=== PATIENT | female | born 1945 | race American Indian/Alaskan Native ===

== ENCOUNTER 2020-10-13 19:42 | Inpatient (IN) | payer MEDICARE ==
[2020-10-13] MEDS ORDERED: IPRATROPIUM/ALBUTEROL SULFATE 3 ML AMPUL.NEB IH ONE (20:35)
[2020-10-13] MEDS ORDERED: MAGNESIUM SULFATE 2 GM/50 ML BAG IV ONE (20:35)
--- NOTE | 2020-10-13 20:41 | Emergency Department Report ---
HPI - General Time Seen by Provider: 10/13/20 20:20 - HPI HPI: Room 10 The patient is a 75-year-old female present with a chief complaint of shortness of breath. The patient states she does not carry diagnosis of COPD or asthma but she is on home O2 2 L nasal cannula. Patient states 2 to 3 hours prior to arrival she developed shortness of breath. EMS was called and states the patient was initially wheezing so they administered albuterol 5 mg, Solu-Medrol 125 mg and Zofran prior to arrival in the ED. The patient states she still feels slightly improved. Patient denies history of fever cough or contact with known Covid cases. Patient has history of breast cancer and last received chemotherapy January 2020. Patient denies chest pain ED Past Medical Hx - Past Medical History Hx Hypertension: Yes Hx CVA: Yes Hx Congestive Heart Failure: Yes Hx Diabetes: Yes Hx of Cancer: Yes (Breast CA last chemo January 2020) - Surgical History Past Surgical History?: No - Family History Family history: no significant - Social History Smoking Status: Former Smoker (None x9 years) Substance Use Type: None ED Review of Systems ROS: Stated complaint: DIFFICULTY IN BREATHING Other details as noted in HPI Constitutional: denies: fever Eyes: denies: eye pain ENT: denies: throat pain Respiratory: shortness of breath, wheezing. denies: cough Cardiovascular: denies: chest pain Endocrine: no symptoms reported Gastrointestinal: denies: abdominal pain Genitourinary: denies: dysuria Musculoskeletal: denies: back pain Neurological: denies: headache Physical Exam - Physical Exam Physical Exam: GENERAL: The patient is well-developed well-nourished female lying on stretcher not appearing to be in acute distress. [] HEENT: Normocephalic. Atraumatic. Extraocular motions are intact. Patient has moist mucous membranes. NECK: Supple. Trachea midline CHEST/LUNGS: Clear to auscultation. There is no respiratory distress noted. HEART/CARDIOVASCULAR: Regular. There is no tachycardia. There is no gallop rub or murmur. ABDOMEN: Abdomen is soft, nontender. Patient has normal bowel sounds. There is no abdominal distention. SKIN: There is no rash. There is no edema. There is no diaphoresis. NEURO: The patient is awake, alert, and oriented. The patient is cooperative. The patient has normal speech MUSCULOSKELETAL: There is no evidence of acute injury. ED Medical Decision Making - Lab Data Result diagrams: 10/13/20 21:02 10/13/20 21:02 Laboratory Tests 10/13/20 10/13/20 10/13/20 21:02 21:02 21:02 WBC 8.1 RBC 2.96 L Hgb 7.9 L Hct 23.9 L MCV 81 MCH 27 L MCHC 33 RDW 17.5 H Plt Count 297 Add Manual Diff Complete Total Counted 100 Seg Neutrophils % Electric Distribution Checker Seg Neuts % (Manual) 92.0 H Lymphocytes % (Manual) 5.0 L Monocytes % (Manual) 3.0 Nucleated RBC % Not Reportable Seg Neutrophils # Man 7.5 Band Neutrophils # 0.0 Lymphocytes # (Manual) 0.4 L Abs React Lymphs (Man) 0.0 Monocytes # (Manual) 0.2 Eosinophils # (Manual) 0.0 Basophils # (Manual) 0.0 Metamyelocytes # 0.0 Myelocytes # 0.0 Promyelocytes # 0.0 Blast Cells # 0.0 WBC Morphology Not Reportable Hypersegmented Neuts Not Reportable Hyposegmented Neuts Not Reportable Hypogranular Neuts Not Reportable Smudge Cells Not Reportable Toxic Granulation Not Reportable Toxic Vacuolation Not Reportable Dohle Bodies Not Reportable Pelger-Huet Anomaly Not Reportable Mike Rods Not Reportable Platelet Estimate Consistent w auto Clumped Platelets Not Reportable Plt Clumps, EDTA Not Reportable Large Platelets Not Reportable Giant Platelets Not Reportable Platelet Satelliting Not Reportable Plt Morphology Comment Not Reportable RBC Morphology Not Reportable Dimorphic RBCs Not Reportable Polychromasia Not Reportable Hypochromasia Not Reportable Poikilocytosis Not Reportable Anisocytosis Not Reportable Microcytosis Not Reportable Macrocytosis Not Reportable Spherocytes Not Reportable Pappenheimer Bodies Not Reportable Sickle Cells Not Reportable Target Cells Not Reportable Tear Drop Cells Not Reportable Ovalocytes Rare Helmet Cells Not Reportable Nunez-[place] Bodies Not Reportable Olds Rings Not Reportable Hans Cells Not Reportable Bite Cells Not Reportable Crenated Cell Not Reportable Elliptocytes Not Reportable Acanthocytes (Spur) Not Reportable Rouleaux Not Reportable Hemoglobin C Crystals Not Reportable Schistocytes Not Reportable Malaria parasites Not Reportable Malcom Bodies Not Reportable Hem Pathologist Commnt No PT 13.9 INR 1.09 D-Dimer 1190.14 H ABG pH ABG pCO2 ABG pO2 ABG HCO3 ABG O2 Saturation ABG O2 Content ABG Base Excess ABG Hemoglobin ABG Carboxyhemoglobin ABG Methemoglobin Oxyhemoglobin FiO2 Sodium 136 L Potassium 4.1 Chloride 99.2 Carbon Dioxide 23 Anion Gap 18 BUN 23 H Creatinine 1.0 Estimated GFR > 60 BUN/Creatinine Ratio 23 Glucose 217 H Calcium 7.6 L Total Creatine Kinase 110 CK-MB (CK-2) 3.5 CK-MB (CK-2) Rel Index 3.1 Troponin T 0.041 H NT-Pro-B Natriuret Pep 4997 H Triglycerides 73 Cholesterol 207 H LDL Cholesterol Direct 72 HDL Cholesterol 125 H Cholesterol/HDL Ratio 1.65 10/13/20 22:15 WBC RBC Hgb Hct MCV MCH MCHC RDW Plt Count Add Manual Diff Total Counted Seg Neutrophils % Seg Neuts % (Manual) Lymphocytes % (Manual) Monocytes % (Manual) Nucleated RBC % Seg Neutrophils # Man Band Neutrophils # Lymphocytes # (Manual) Abs React Lymphs (Man) Monocytes # (Manual) Eosinophils # (Manual) Basophils # (Manual) Metamyelocytes # Myelocytes # Promyelocytes # Blast Cells # WBC Morphology Hypersegmented Neuts Hyposegmented Neuts Hypogranular Neuts Smudge Cells Toxic Granulation Toxic Vacuolation Dohle Bodies Pelger-Huet Anomaly Mike Rods Platelet Estimate Clumped Platelets Plt Clumps, EDTA Large Platelets Giant Platelets Platelet Satelliting Plt Morphology Comment RBC Morphology Dimorphic RBCs Polychromasia Hypochromasia Poikilocytosis Anisocytosis Microcytosis Macrocytosis Spherocytes Pappenheimer Bodies Sickle Cells Target Cells Tear Drop Cells Ovalocytes Helmet Cells Nunez-[place] Bodies Olds Rings Hans Cells Bite Cells Crenated Cell Elliptocytes Acanthocytes (Spur) Rouleaux Hemoglobin C Crystals Schistocytes Malaria parasites Malcom Bodies Hem Pathologist Commnt PT INR D-Dimer ABG pH 7.406 ABG pCO2 40.4 ABG pO2 68.4 L ABG HCO3 24.8 ABG O2 Saturation 94.2 L ABG O2 Content 11.1 ABG Base Excess 0.1 ABG Hemoglobin 8.6 L ABG Carboxyhemoglobin 2.1 ABG Methemoglobin 0.6 Oxyhemoglobin 91.6 L FiO2 36 Sodium Potassium Chloride Carbon Dioxide Anion Gap BUN Creatinine Estimated GFR BUN/Creatinine Ratio Glucose Calcium Total Creatine Kinase CK-MB (CK-2) CK-MB (CK-2) Rel Index Troponin T NT-Pro-B Natriuret Pep Triglycerides Cholesterol LDL Cholesterol Direct HDL Cholesterol Cholesterol/HDL Ratio - EKG Data -: EKG Interpreted by Me EKG shows normal: sinus rhythm Rate: normal - EKG Data When compared to previous EKG there are: previous EKG unavailable Interpretation: nonspecific ST-T wave dez - Radiology Data Radiology results: report reviewed (CTA chest), image reviewed (Chest x-ray, CTA chest) interpreted by me: Chest [id number], left lower lobe haziness. No pneumothorax Findings [facility] [address] [place] [address] XRay Report Signed Patient: REGINA BYERS MR#: [id number] : 1945 Acct:[id number] Age/Sex: 75 / F ADM Date: 10/13/20 Loc: ED Attending Dr: Ordering Physician: LEONOR MADERA MD Date of Service: 10/13/20 Procedure(s): XR chest 1V ap Accession Number(s): [id number] cc: LEONOR MADERA MD Fluoro Time In Minutes: CHEST 1 VIEW 10/13/2020 8:54 PM INDICATION / CLINICAL INFORMATION: Shortness of breath. COMPARISON: None available. FINDINGS: SUPPORT DEVICES: There is a Port-A-Cath on the right. The catheter tip is oriented to the left is positioned midline. The exact intravascular location cannot be determined by this radiograph. The catheter tip may be in the left brachiocephalic vein. HEART / MEDIASTINUM: There is prominence the cardiac silhouette LUNGS / PLEURA: There is perihilar interstitial disease characteristic of edema. There is venous congestion. No pneumothorax. ADDITIONAL FINDINGS: No significant additional findings. IMPRESSION: 1. There is perihilar edema. There is venous congestion. 2. The Port-A-Cath catheter tip is oriented to the left and projects over the mid aspect of the mediastinum. The exact intravascular location cannot be determined by this radiograph. Signer Name: Kevin Gamino MD Signed: 10/13/2020 9:01 PM Workstation Name: [id number] Transcribed By: SS Dictated By: Kevin Gamino MD Electronically Authenticated By: Kevin Gamino MD Signed Date/Time: 10/13/202100 DD/ 58 TD/TT: Findings [facility] [address] [place] [address] Cat Scan Report Signed Patient: REGINA BYERS MR#: [id number] : 1945 Acct:[id number] Age/Sex: 75 / F ADM Date: 10/13/20 Loc: ED Attending Dr: Ordering Physician: LEONOR MADERA MD Date of Service: 10/13/20 Procedure(s): CT angio chest Accession Number(s): [id number] cc: LEONOR MADERA MD CTA chest with contrast INDICATION : Shortness of breath. TECHNIQUE: Axial imaging performed through the chest, with contrast bolus timing set to maximize opacification of the pulmonary arteries. 3-plane MIP reformatted images were obtained. All CT scans at this location are performed using CT dose reduction for ALARA by means of automated exposure control. 100 mL of intravenous contrast administered. COMPARISON: Chest x-ray from today FINDINGS: Bolus: Contrast bolus timing is adequate. PTE: No filling defect is present to suggest PTE. Mediastinum: Moderate atherosclerotic disease in the coronary arteries with normal heart size. The tip of the right-sided subclavian Port-A-Cath is located in the left brachiocephalic vein. No pathologic mediastinal adenopathy. Lungs: Moderate sized pleural effusions with respiratory motion artifact, mild edema, and patchy multifocal groundglass opacities. A few nodular densities are also present largest of which measures 8 mm on image #41 of series #2 the medial right upper lobe. Upper abdomen: Limited imaging of the upper abdomen shows nothing acute. Bones: Degenerative changes in the spine with nothing acute. IMPRESSION: 1. Negative for PTE. 2. Pulmonary edema with moderate-sized bilateral pleural effusions. There are also superimposed patchy airspace opacities throughout the lungs which could be seen with alveolar edema or an atypical infe ctious/inflammatory process such as viral disease. Finally, multiple scattered pulmonary nodules are present measuring up to 8 mm. Please see below recommendations. 3. Right-sided Port-A-Cath as above. INCIDENTAL PULMONARY NODULE RECOMMENDATION RECOMMENDATION: Solid Nodule size 6-8 mm -- Multiple - Low Risk Patient: CT at 3-6 months, then consider CT at 18-24 months - High Risk Patient: CT at 3-6 months, then CT at 18-24 month Note These recommendations do not apply to lung cancer screening, patients with immunosuppression, or patients with known primary cancer. Note Newly detected indeterminate nodule in persons 35 years of age or older. Persons under the age of 35 should not receive follow- up unless there is a known primary cancer. Note A Perifissural Nodule is a fissure-attached/subpleural, homogeneous, solid nodule that had smooth margins and an oval, lentiform, or triangular shape. They represent about 20% of nodules detected in lung cancer screening, are invariably benign, and do not require follow-up. Nodules 10 mm or larger (or those with suspicious features) will continue to be managed based on the size criteria. Low Risk Patient -- minimal or absent history of smoking and of other known risk factors. High Risk Patient -- history of smoking or of other known risk factors. Nodule dimensions are average of long and short axes, rounded to the nearest millimeter. Based on 2017 Fleischner Society Guidelines found in Radiology 2017 284:228-243. https://doi.org/10.1148/radiol.[email or web address] https://www.ncbi.nlm.nih.gov/pmc/articles/WQY2205534/ Signer Name: Jorge Luis Winslow MD Signed: 10/13/2020 10:44 PM Workstation Name: [id number] Transcribed By: JW Dictated By: Jorge Luis Winslow MD Electronically Authenticated By: Jorge Luis Winslow MD Signed Date/Time: 10/13/202243 DD/ 39 TD/TT: - Differential Diagnosis Reactive airway disease, CHF, pneumonia, bronchitis, PE Critical care attestation.: If time is entered above; I have spent that time in minutes in the direct care of this critically ill patient, excluding procedure time. ED Disposition Clinical Impression: Shortness of breath, CHF exacerbation, Bilateral pleural effusion, Elevated troponin Disposition: OP ADMIT IP TO THIS HOSP Is pt being admited?: Yes Does the pt Need Aspirin: Yes Condition: Fair Time of Disposition: 23:01 (Hospitalist paged (Dr Farah))
--- NOTE | 2020-10-13 21:06 | XRay Report ---
CHEST 1 VIEW 10/13/2020 8:54 PM INDICATION / CLINICAL INFORMATION: Shortness of breath. COMPARISON: None available. FINDINGS: SUPPORT DEVICES: There is a Port-A-Cath on the right. The catheter tip is oriented to the left is pos itioned midline. The exact intravascular location cannot be determined by this radiograph. The cathet er tip may be in the left brachiocephalic vein. HEART / MEDIASTINUM: There is prominence the cardiac silhouette LUNGS / PLEURA: There is perihilar interstitial disease characteristic of edema. There is venous cody estion. No pneumothorax. ADDITIONAL FINDINGS: No significant additional findings. IMPRESSION: 1. There is perihilar edema. There is venous congestion. 2. The Port-A-Cath catheter tip is oriented to the left and projects over the mid aspect of the media stinum. The exact intravascular location cannot be determined by this radiograph. Signer Name: Kevin Gamino MD Signed: 10/13/2020 9:01 PM Workstation Name: [id number]
[2020-10-13 21:21] LABS: Hematocrit 23.9 % (30.3-42.9); Hemoglobin 7.9 gm/dl (10.1-14.3); Mean Corpuscular HGB Conc 33 % (30-34); Mean Corpuscular Volume 81 fl (79-97); Platelet Count 297 K/mm3 (140-440); Red Blood Count 2.96 M/mm3 (3.65-5.03); Red Cell Distribution Width 17.5 % (13.2-15.2)
[2020-10-13 21:30] LABS: INR 1.09 (0.87-1.13)
[2020-10-13 21:41] LABS: Creatine Kinase MB 3.5 ng/mL (0.0-4.0)
[2020-10-13 21:42] LABS: BUN/Creatinine Ratio 23; Blood Urea Nitrogen 23 mg/dL (7-17); Calcium 7.6 mg/dL (8.4-10.2); Hemolysis Index 0
[2020-10-13 22:14] LABS: LDL Cholesterol,Direct 72 mg/dL (50-130)
[2020-10-13 22:18] LABS: Chol/HDL Ratio 1.65 %; HDL Cholesterol 125 mg/dL (40-59)
[2020-10-13 22:27] LABS: Total Cells Counted 100
[2020-10-13 22:29] LABS: Ovalocytes Rare; Platelet Estimate Consistent w Auto
[2020-10-13 22:38] LABS: ABG Base Excess 0.1 mmol/L (-2.0-3.0); ABG HCO3 24.8 mmol/L (20.0-26.0); ABG Methemoglobin 0.6 % (0.0-1.5); ABG Oxygen Saturation 94.2 % (95.0-99.0); ABG PCO2 40.4 mm Hg; ABG PH 7.406 pH Units (7.350-7.450); ABG PO2 68.4 mm Hg (80.0-90.0)
--- NOTE | 2020-10-13 22:49 | Cat Scan Report ---
CTA chest with contrast INDICATION : Shortness of breath. TECHNIQUE: Axial imaging performed through the chest, with contrast bolus timing set to maximize opa cification of the pulmonary arteries. 3-plane MIP reformatted images were obtained. All CT scans at this location are performed using CT dose reduction for ALARA by means of automated exposure control. 100 mL of intravenous contrast administered. COMPARISON: Chest x-ray from today FINDINGS: Bolus: Contrast bolus timing is adequate. PTE: No filling defect is present to suggest PTE. Mediastinum: Moderate atherosclerotic disease in the coronary arteries with normal heart size. The t ip of the right-sided subclavian Port-A-Cath is located in the left brachiocephalic vein. No patholo gic mediastinal adenopathy. Lungs: Moderate sized pleural effusions with respiratory motion artifact, mild edema, and patchy mul tifocal groundglass opacities. A few nodular densities are also present largest of which measures 8 m m on image #41 of series #2 the medial right upper lobe. Upper abdomen: Limited imaging of the upper abdomen shows nothing acute. Bones: Degenerative changes in the spine with nothing acute. IMPRESSION: 1. Negative for PTE. 2. Pulmonary edema with moderate-sized bilateral pleural effusions. There are also superimposed patch y airspace opacities throughout the lungs which could be seen with alveolar edema or an atypical infe ctious/inflammatory process such as viral disease. Finally, multiple scattered pulmonary nodules are present measuring up to 8 mm. Please see below recommendations. 3. Right-sided Port-A-Cath as above. INCIDENTAL PULMONARY NODULE RECOMMENDATION RECOMMENDATION: Solid Nodule size 6-8 mm -- Multiple - Low Risk Patient: CT at 3-6 months, then consider CT at 18-24 months - High Risk Patient: CT at 3-6 months, then CT at 18-24 month Note These recommendations do not apply to lung cancer screening, patients with immunosuppression, o r patients with known primary cancer. Note Newly detected indeterminate nodule in persons 35 years of age or older. Persons under the age of 35 should not receive follow-up unless there is a known primary cancer. Note A Perifissural Nodule is a fissure-attached/subpleural, homogeneous, solid nodule that had smoo th margins and an oval, lentiform, or triangular shape. They represent about 20% of nodules detected in lung cancer screening, are invariably benign, and do not require follow-up. Nodules 10 mm or large r (or those with suspicious features) will continue to be managed based on the size criteria. Low Risk Patient -- minimal or absent history of smoking and of other known risk factors. High Risk Patient -- history of smoking or of other known risk factors. Nodule dimensions are average of long and short axes, rounded to the nearest millimeter. Based on 2017 Fleischner Society Guidelines found in Radiology 2017 284:228-243. https://doi.org/10.1148/radiol.7455014094 https://www.ncbi.nlm.nih.gov/pmc/articles/TEK7496776/ Signer Name: Jorge Luis Winslow MD Signed: 10/13/2020 10:44 PM Workstation Name: [id number]
[2020-10-13] MEDS ORDERED: FUROSEMIDE 40 MG/4 ML INJ IV ONE (22:58)
[2020-10-13] MEDS ORDERED: AZITHROMYCIN 500 MG in SODIUM CHLORIDE 0.9% 250ML 250 ML IV ONE (23:33)
[2020-10-13] MEDS ORDERED: cefTRIAXone/NS 1 GM/50 ML 1 GM/50 ML BAG IV ONE (23:33)
[2020-10-14] MEDS ORDERED: DEXTROSE 50% IN WATER (25GM) 50 ML SYRINGE IV PRN (00:48)
[2020-10-14] MEDS ORDERED: ONDANSETRON 4 MG/2 ML INJ IV PRN (00:48)
[2020-10-14] MEDS ORDERED: ACETAMINOPHEN 325 MG TAB PO PRN (00:48)
[2020-10-14] MEDS ORDERED: MORPHINE 2 MG/1 ML INJ IV PRN (00:48)
[2020-10-14] MEDS ORDERED: MAGNESIUM HYDROXIDE (MOM) ORAL LIQD UDC PO PRN (00:48)
[2020-10-14 01:13] LABS: C-Reactive Protein 6.9 mg/dL (0.00-1.30)
--- NOTE | 2020-10-14 01:35 | History and Physical Report ---
History of Present Illness Date of examination: 10/13/20 Date of admission: 10/13/20 23:36 Chief complaint: Shortness of Breath History of present illness: Patient is a 75-year-old female with known history of diabetes mellitus, history of CVA, breast cancer with last chemotherapy on 02/13/2020, hypertension presenting to the emergency room today complaining of shortness of breath. Shortness of breath is said to have started a few hours prior to reporting to the emergency room. Upon arrival of EMS patient was said to be wheezing and she was administered some nebulizing treatments, Solu-Medrol and Zofran prior to reporting to the emergency room. Patient denies any fever or chills, denies any chest pain, denies any sick contacts and no recent travel, denies any contact with anyone with COVID-19. Work-up in the emergency room today CT angiogram reveals:. Pulmonary edema with moderate-sized bilateral pleural effusions. There are also superimposed patchy airspace opacities throughout the lungs which could be seen with alveolar edema or an atypical infectious/inflammatory process such as viral disease. Multiple scattered pulmonary nodules are present measuring up to 8 mm. Patient being admitted with CHF exacerbation and or underlying pneumonia. Past History Past Medical History: diabetes, heart failure, hypertension, stroke, other (Breast ca. last - Chemo 01/2020) Past Surgical History: No surgical history Social history: smoking (former smoker) Medications and Allergies Allergies Allergy/AdvReac Type Severity Reaction Status Date / Time metformin Allergy Swelling Verified 10/13/20 21:19 Active Meds: Active Medications Acetaminophen (Acetaminophen 325 Mg Tab) 650 mg PO Q4H PRN PRN Reason: Pain MILD(1-3)/Fever >100.5/CAMACHO Dextrose (Dextrose 50% In Water (25gm) 50 Ml Syringe) 50 ml IV Q30MIN PRN; Protocol PRN Reason: Hypoglycemia Furosemide (Furosemide 40 Mg/4 Ml Inj) 40 mg IV BID@0600,1800 MELANY Ceftriaxone Sodium (Rocephin/Ns 2 Gm/100 Ml) 2 gm in 100 mls @ 200 mls/hr IV Q24H MELANY; Protocol Azithromycin 500 mg/ Sodium (Chloride) 250 mls @ 250 mls/hr IV Q24H MELANY; Protocol Insulin Human Lispro (Insulin Lispro 100 Unit/Ml Vial 3 Ml) 0 unit SUB-Q ACHS MELANY; Protocol Magnesium Hydroxide (Magnesium Hydroxide (Mom) Oral Liqd Udc) 30 ml PO Q4H PRN PRN Reason: Constipation Morphine Sulfate (Morphine 2 Mg/1 Ml Inj) 2 mg IV Q4H PRN PRN Reason: Pain, Moderate (4-6) Ondansetron HCl (Ondansetron 4 Mg/2 Ml Inj) 4 mg IV Q8H PRN PRN Reason: Nausea And Vomiting Sodium Chloride (Sodium Chloride 0.9% 10 Ml Flush Syringe) 10 ml IV BID MELANY Sodium Chloride (Sodium Chloride 0.9% 10 Ml Flush Syringe) 10 ml IV PRN PRN PRN Reason: LINE FLUSH Review of Systems Constitutional: no fever, no chills Ears, nose, mouth and throat: no nasal congestion, no sore throat Cardiovascular: no chest pain, no shortness of breath Respiratory: shortness of breath, no cough Gastrointestinal: no abdominal pain, no nausea, no vomiting Genitourinary Female: no pelvic pain, no flank pain, no dysuria, no hematuria Musculoskeletal: no neck pain, no low back pain Integumentary: no rash, no pruritis Neurological: no headaches, no confusion Exam - Constitutional Vitals: Temp Pulse Resp BP Pulse Ox 98.1 F 79 13 128/58 97 10/13/20 20:30 10/14/20 00:15 10/14/20 00:15 10/14/20 00:15 10/14/20 00:15 General appearance: Present: no acute distress, well-nourished - EENT Eyes: Present: PERRL, EOM intact. Absent: scleral icterus ENT: hearing intact, clear oral mucosa, dentition normal - Neck Neck: Present: supple, normal ROM - Respiratory Respiratory effort: normal Respiratory: bilateral: rales - Cardiovascular Rhythm: regular Heart Sounds: Present: S1 & S2. Absent: systolic murmur, diastolic murmur, rub - Extremities Extremities: no ischemia, pulses intact, pulses symmetrical, No edema, Full ROM Peripheral Pulses: within normal limits - Abdominal General gastrointestinal: Present: soft, non-tender, non-distended, normal bowel sounds. Absent: mass - Integumentary Integumentary: Present: clear, warm, dry. Absent: rash - Musculoskeletal Musculoskeletal: strength equal bilaterally - Psychiatric Psychiatric: appropriate mood/affect, intact judgment & insight, memory intact, cooperative - Neurologic Neurologic: CNII-XII intact, no focal deficits, moves all extremities HEART Score - HEART Score Troponin: Troponin T 0.041 ng/mL (0.00-0.029) H 10/13/20 21:02 Results - Labs CBC & Chem 7: 10/13/20 21:02 10/13/20 23:17 Labs: Abnormal lab results 10/13/20 10/13/20 10/13/20 Range/Units 21:02 21:02 21:02 RBC 2.96 L (3.65-5.03) M/mm3 Hgb 7.9 L (10.1-14.3) gm/dl Hct 23.9 L (30.3-42.9) % MCH 27 L (28-32) pg RDW 17.5 H (13.2-15.2) % Seg Neuts % (Manual) 92.0 H (40.0-70.0) % Lymphocytes % (Manual) 5.0 L (13.4-35.0) % Lymphocytes # (Manual) 0.4 L (1.2-5.4) K/mm3 D-Dimer 1190.14 H (0-234) ng/mlDDU ABG pO2 (80.0-90.0) mm Hg ABG O2 Saturation (95.0-99.0) % ABG Hemoglobin (12.0-16.0) gm/dl Oxyhemoglobin (95.0-99.0) % Sodium 136 L (137-145) mmol/L BUN 23 H (7-17) mg/dL Glucose 217 H (65-100) mg/dL Calcium 7.6 L (8.4-10.2) mg/dL Lactate Dehydrogenase (91-180) units/L Troponin T 0.041 H (0.00-0.029) ng/mL C-Reactive Protein (0.00-1.30) mg/dL NT-Pro-B Natriuret Pep 4997 H (0-900) pg/mL Cholesterol 207 H (50-199) mg/dL HDL Cholesterol 125 H (40-59) mg/dL 10/13/20 10/13/20 10/13/20 Range/Units 22:15 23:17 23:17 RBC (3.65-5.03) M/mm3 Hgb (10.1-14.3) gm/dl Hct (30.3-42.9) % MCH (28-32) pg RDW (13.2-15.2) % Seg Neuts % (Manual) (40.0-70.0) % Lymphocytes % (Manual) (13.4-35.0) % Lymphocytes # (Manual) (1.2-5.4) K/mm3 D-Dimer 1239.20 H (0-234) ng/mlDDU ABG pO2 68.4 L (80.0-90.0) mm Hg ABG O2 Saturation 94.2 L (95.0-99.0) % ABG Hemoglobin 8.6 L (12.0-16.0) gm/dl Oxyhemoglobin 91.6 L (95.0-99.0) % Sodium (137-145) mmol/L BUN (7-17) mg/dL Glucose 219 H (65-100) mg/dL Calcium (8.4-10.2) mg/dL Lactate Dehydrogenase 244 H (91-180) units/L Troponin T (0.00-0.029) ng/mL C-Reactive Protein 6.90 H (0.00-1.30) mg/dL NT-Pro-B Natriuret Pep (0-900) pg/mL Cholesterol (50-199) mg/dL HDL Cholesterol (40-59) mg/dL Assessment and Plan - Patient Problems (1) CHF exacerbation Current Visit: Yes Status: Acute Plan to address problem: Patient placed on diuretics. Will monitor inputs and output and also monitor daily weight. She will be scheduled for echocardiogram. (2) Hypertension Current Visit: Yes Status: Acute Plan to address problem: We will place patient on her routine home medications and monitor vital signs closely.We (3) Diabetes mellitus Current Visit: Yes Status: Acute Plan to address problem: We will monitor Accu-Cheks. (4) Pneumonia Current Visit: Yes Status: Acute Plan to address problem: Patient placed on empiric IV antibiotics. Meanwhile we will also test patient for COVID-19. Infectious disease will be consulted for evaluation. (5) DVT prophylaxis Current Visit: Yes Status: Acute Plan to address problem: Patient placed on subcutaneous Lovenox. (6) Full code status Current Visit: Yes Status: Acute
[2020-10-14] MEDS: FUROSEMIDE 40 MG/4 ML INJ IV SCH ×2 (06:00→21:56)
[2020-10-14] MEDS: INSULIN LISPRO 100 UNIT/ML VIAL 3 mL SUB-Q SCH ×5 (08:04→22:39)
--- NOTE | 2020-10-14 11:44 | Consultation ---
History of Present Illness Consult date: 10/14/20 Consult reason: shortness of breath History of present illness: The patient is a 75-year-old woman admitted with shortness of breath and wheezing, on presentation the chest x-ray showed normal-sized cardiac silhouette, and bilateral mild diffuse interstitial pulmonary changes. She is on isolation protocol, under suspicion for Covid pneumonia. The Covid test has been ordered and is pending. Cardiology consultation is requested for evaluation of possible CHF. The patient has no chest pain, no edema, no palpitations, no prior cardiac history. EKG is normal sinus rhythm with nonspecific T wave flattening, no ischemia on the ECG. Troponin level was borderline at 0.04. Most significant finding on laboratory exam is a hematocrit of 24, no prior results in the hospital records for comparison. Currently, patient is in the emergency room, comfortable on bedrest, no acute distress. Past History Past Medical History: diabetes, hypertension, stroke, other (Breast ca. last - Chemo 01/2020) Past Surgical History: No surgical history Social history: smoking (former smoker) Medications and Allergies Allergies Allergy/AdvReac Type Severity Reaction Status Date / Time metformin Allergy Swelling Verified 10/13/20 21:19 Active Meds: Active Medications Acetaminophen (Acetaminophen 325 Mg Tab) 650 mg PO Q4H PRN PRN Reason: Pain MILD(1-3)/Fever >100.5/CAMACHO Dextrose (Dextrose 50% In Water (25gm) 50 Ml Syringe) 50 ml IV Q30MIN PRN; Protocol PRN Reason: Hypoglycemia Enoxaparin Sodium (Enoxaparin 40 Mg/0.4 Ml Inj) 40 mg SUB-Q QDAY@2200 MELANY; Pro tocol Furosemide (Furosemide 40 Mg/4 Ml Inj) 40 mg IV BID@0600,1800 MELANY Last Admin: 10/14/20 06:00 Dose: 40 mg Documented by: Ceftriaxone Sodium (Rocephin/Ns 2 Gm/100 Ml) 2 gm in 100 mls @ 200 mls/hr IV Q24H MELANY; Protocol Azithromycin 500 mg/ Sodium (Chloride) 250 mls @ 250 mls/hr IV Q24H MELANY; Protocol Stop: 10/17/20 22:59 Insulin Human Lispro (Insulin Lispro 100 Unit/Ml Vial 3 Ml) 0 unit SUB-Q ACHS MELANY; Protocol Last Admin: 12/20/20 08:04 Dose: 8 unit Documented by: Magnesium Hydroxide (Magnesium Hydroxide (Mom) Oral Liqd Udc) 30 ml PO Q4H PRN PRN Reason: Constipation Morphine Sulfate (Morphine 2 Mg/1 Ml Inj) 2 mg IV Q4H PRN PRN Reason: Pain, Moderate (4-6) Ondansetron HCl (Ondansetron 4 Mg/2 Ml Inj) 4 mg IV Q8H PRN PRN Reason: Nausea And Vomiting Sodium Chloride (Sodium Chloride 0.9% 10 Ml Flush Syringe) 10 ml IV BID MELANY Sodium Chloride (Sodium Chloride 0.9% 10 Ml Flush Syringe) 10 ml IV PRN PRN PRN Reason: LINE FLUSH Review of Systems Cardiovascular: shortness of breath, no chest pain, no orthopnea, no palpitations, no rapid/irregular heart beat, no edema, no syncope, no lightheadedness Physical Examination Vital Signs Temp Pulse Resp BP Pulse Ox 98.1 F 80 18 152/80 100 10/13/20 20:30 10/13/20 20:30 10/13/20 20:30 10/13/20 20:30 10/13/20 20:30 Narrative exam: Full physical exam is deferred due to the patient's isolated status under suspicion for Covid pneumonia. General appearance: no acute distress Results 10/13/20 21:02 10/13/20 23:17 Cardiac Enzymes 10/13/20 10/13/20 Range/Units 21:02 23:17 Lactate Dehydrogenase 244 H (91-180) units/L CK-MB (CK-2) 3.5 (0.0-4.0) ng/mL Coagulation 10/13/20 Range/Units 21:02 PT 13.9 (12.2-14.9) Sec. INR 1.09 (0.87-1.13) Lipids 10/13/20 Range/Units 21:02 Triglycerides 73 (2-149) mg/dL Cholesterol 207 H (50-199) mg/dL HDL Cholesterol 125 H (40-59) mg/dL Cholesterol/HDL Ratio 1.65 % CBC 10/13/20 Range/Units 21:02 WBC 8.1 (4.5-11.0) K/mm3 RBC 2.96 L (3.65-5.03) M/mm3 Hgb 7.9 L (10.1-14.3) gm/dl Hct 23.9 L (30.3-42.9) % Plt Count 297 (140-440) K/mm3 Comprehensive Metabolic Panel 10/13/20 10/13/20 Range/Units 21:02 23:17 Sodium 136 L (137-145) mmol/L Potassium 4.1 (3.6-5.0) mmol/L Chloride 99.2 (98-107) mmol/L Carbon Dioxide 23 (22-30) mmol/L BUN 23 H (7-17) mg/dL Creatinine 1.0 (0.6-1.2) mg/dL Glucose 217 H 219 H (65-100) mg/dL Calcium 7.6 L (8.4-10.2) mg/dL EKG interpretations - Telemetry EKG Rhythm: Sinus Rhythm Assessment and Plan - Patient Problems (1) Shortness of breath Current Visit: Yes Status: Acute Plan to address problem: Patient is admitted with shortness of breath and abnormal chest x-ray, etiology uncertain, under suspicion for COVID-19 pneumonia. Covid test is pending. We will hold echocardiogram while on isolation protocol, until Covid status is determined. (2) Anemia Current Visit: Yes Status: Acute Plan to address problem: Defer to internal medicine for further evaluation and management of the patient's anemia.
--- NOTE | 2020-10-14 12:25 | Progress Note ---
Assessment and Plan Assessment and plan: (1) CHF exacerbation Current Visit: Yes Status: Acute Plan to address problem: Patient placed on diuretics. Will monitor inputs and output and also monitor daily weight. She will be scheduled for echocardiogram. (2) Hypertension Current Visit: Yes Status: Acute Plan to address problem: We will place patient on her routine home medications and monitor vital signs closely.We (3) Diabetes mellitus Current Visit: Yes Status: Acute Plan to address problem: We will monitor Accu-Cheks. (4) Pneumonia Current Visit: Yes Status: Acute Plan to address problem: Patient placed on empiric IV antibiotics. Meanwhile we will also test patient for COVID-19. Infectious disease will be consulted for evaluation. (5) DVT prophylaxis Current Visit: Yes Status: Acute Plan to address problem: Patient placed on subcutaneous Lovenox. (6) Full code status Current Visit: Yes Status: Acute 10/14/2020; patient is admitted for the management of suspected pneumonia, PUI, CHF exacerbation. Echo was ordered. Cardiology was consulted. His blood pressure is controlled. Diabetes is uncontrolled and I put Lantus 20 units to be taken now, 25 units nightly, 15 units AC insulin and sliding scale insulin. ADA diet, Accu-Chek and adjust insulin as needed. History Interval history: Patient was seen and evaluated this morning Patient is on 3 L of intranasal oxygen Does not have any complaints Hospitalist Physical - Physical exam Narrative exam: Not in cardiopulmonary distress. The patient appeared well nourished and normally developed. Vital signs as documented. Head exam is unremarkable. No scleral icterus . Neck is without jugular venous distension, thyromegaly, or carotid bruits. Lungs are clear to auscultation. Cardiac exam reveals regular rate and Rhythm. Abdominal exam reveals normal bowel sounds, nontender, no organomegaly. Extremities are nonedematous and both femoral and pedal pulses are normal. MEDICAL CHEMIST: Alert and oriented 3. No focal weakness. - Constitutional Vitals: Temp Pulse Resp BP Pulse Ox 98.1 F 97 H 28 H 131/64 95 10/13/20 20:30 10/14/20 08:01 10/14/20 10:32 10/14/20 10:30 10/14/20 10:32 General appearance: Present: no acute distress HEART Score - HEART Score Troponin: Troponin T 0.041 ng/mL (0.00-0.029) H 10/13/20 21:02 Results - Labs CBC & Chem 7: 10/13/20 21:02 10/13/20 23:17 Labs: Laboratory Last Values WBC 8.1 K/mm3 (4.5-11.0) 10/13/20 21:02 RBC 2.96 M/mm3 (3.65-5.03) L 10/13/20 21:02 Hgb 7.9 gm/dl (10.1-14.3) L 10/13/20 21:02 Hct 23.9 % (30.3-42.9) L 10/13/20 21:02 MCV 81 fl (79-97) 10/13/20 21:02 MCH 27 pg (28-32) L 10/13/20 21:02 MCHC 33 % (30-34) 10/13/20 21:02 RDW 17.5 % (13.2-15.2) H 10/13/20 21:02 Plt Count 297 K/mm3 (140-440) 10/13/20 21:02 Add Manual Diff Complete 10/13/20 21:02 Total Counted 100 10/13/20 21:02 Seg Neutrophils % Crts 10/13/20 21:02 Seg Neuts % (Manual) 92.0 % (40.0-70.0) H 10/13/20 21:02 Lymphocytes % (Manual) 5.0 % (13.4-35.0) L 10/13/20 21:02 Monocytes % (Manual) 3.0 % (0.0-7.3) 10/13/20 21:02 Nucleated RBC % Not Reportable 10/13/20 21:02 Seg Neutrophils # Man 7.5 K/mm3 (1.8-7.7) 10/13/20 21:02 Band Neutrophils # 0.0 K/mm3 10/13/20 21:02 Lymphocytes # (Manual) 0.4 K/mm3 (1.2-5.4) L 10/13/20 21:02 Abs React Lymphs (Man) 0.0 K/mm3 10/13/20 21:02 Monocytes # (Manual) 0.2 K/mm3 (0.0-0.8) 10/13/20 21:02 Eosinophils # (Manual) 0.0 K/mm3 (0.0-0.4) 10/13/20 21:02 Basophils # (Manual) 0.0 K/mm3 (0.0-0.1) 10/13/20 21:02 Metamyelocytes # 0.0 K/mm3 10/13/20 21:02 Myelocytes # 0.0 K/mm3 10/13/20 21:02 Promyelocytes # 0.0 K/mm3 10/13/20 21:02 Blast Cells # 0.0 K/mm3 10/13/20 21:02 WBC Morphology Not Reportable 10/13/20 21:02 Hypersegmented Neuts Not Reportable 10/13/20 21:02 Hyposegmented Neuts Not Reportable 10/13/20 21:02 Hypogranular Neuts Not Reportable 10/13/20 21:02 Smudge Cells Not Reportable 10/13/20 21:02 Toxic Granulation Not Reportable 10/13/20 21:02 Toxic Vacuolation Not Reportable 10/13/20 21:02 Dohle Bodies Not Reportable 10/13/20 21:02 Pelger-Huet Anomaly Not Reportable 10/13/20 21:02 Mike Rods Not Reportable 10/13/20 21:02 Platelet Estimate Consistent w auto 10/13/20 21:02 Clumped Platelets Not Reportable 10/13/20 21:02 Plt Clumps, EDTA Not Reportable 10/13/20 21:02 Large Platelets Not Reportable 10/13/20 21:02 Giant Platelets Not Reportable 10/13/20 21:02 Platelet Satelliting Not Reportable 10/13/20 21:02 Plt Morphology Comment Not Reportable 10/13/20 21:02 RBC Morphology Not Reportable 10/13/20 21:02 Dimorphic RBCs Not Reportable 10/13/20 21:02 Polychromasia Not Reportable 10/13/20 21:02 Hypochromasia Not Reportable 10/13/20 21:02 Poikilocytosis Not Reportable 10/13/20 21:02 Anisocytosis Not Reportable 10/13/20 21:02 Microcytosis Not Reportable 10/13/20 21:02 Macrocytosis Not Reportable 10/13/20 21:02 Spherocytes Not Reportable 10/13/20 21:02 Pappenheimer Bodies Not Reportable 10/13/20 21:02 Sickle Cells Not Reportable 10/13/20 21:02 Target Cells Not Reportable 10/13/20 21:02 Tear Drop Cells Not Reportable 10/13/20 21:02 Ovalocytes Rare 10/13/20 21:02 Helmet Cells Not Reportable 10/13/20 21:02 [place] Bodies Not Reportable 10/13/20 21:02 [place] Rings Not Reportable 10/13/20 21:02 Hans Cells Not Reportable 10/13/20 21:02 Bite Cells Not Reportable 10/13/20 21:02 Crenated Cell Not Reportable 10/13/20 21:02 Elliptocytes Not Reportable 10/13/20 21:02 Acanthocytes (Spur) Not Reportable 10/13/20 21:02 Rouleaux Not Reportable 10/13/20 21:02 Hemoglobin C Crystals Not Reportable 10/13/20 21:02 Schistocytes Not Reportable 10/13/20 21:02 Malaria parasites Not Reportable 10/13/20 21:02 Malcom Bodies Not Reportable 10/13/20 21:02 Hem Pathologist Commnt No 10/13/20 21:02 PT 13.9 Sec. (12.2-14.9) 10/13/20 21:02 INR 1.09 (0.87-1.13) 10/13/20 21:02 D-Dimer 1239.20 ng/mlDDU (0-234) H 10/13/20 23:17 ABG pH 7.406 pH Units (7.350-7.450) 10/13/20 22:15 ABG pCO2 40.4 mm Hg 10/13/20 22:15 ABG pO2 68.4 mm Hg (80.0-90.0) L 10/13/20 22:15 ABG HCO3 24.8 mmol/L (20.0-26.0) 10/13/20 22:15 ABG O2 Saturation 94.2 % (95.0-99.0) L 10/13/20 22:15 ABG O2 Content 11.1 (0.0-44) 10/13/20 22:15 ABG Base Excess 0.1 mmol/L (-2.0-3.0) 10/13/20 22:15 ABG Hemoglobin 8.6 gm/dl (12.0-16.0) L 10/13/20 22:15 ABG Carboxyhemoglobin 2.1 % (0.0-5.0) 10/13/20 22:15 ABG Methemoglobin 0.6 % (0.0-1.5) 10/13/20 22:15 Oxyhemoglobin 91.6 % (95.0-99.0) L 10/13/20 22:15 FiO2 36 % 10/13/20 22:15 Sodium 136 mmol/L (137-145) L 10/13/20 21:02 Potassium 4.1 mmol/L (3.6-5.0) 10/13/20 21:02 Chloride 99.2 mmol/L (98-107) 10/13/20 21:02 Carbon Dioxide 23 mmol/L (22-30) 10/13/20 21:02 Anion Gap 18 mmol/L 10/13/20 21:02 BUN 23 mg/dL (7-17) H 10/13/20 21:02 Creatinine 1.0 mg/dL (0.6-1.2) 10/13/20 21:02 Estimated GFR > 60 ml/min 10/13/20 21:02 BUN/Creatinine Ratio 23 % 10/13/20 21:02 Glucose 219 mg/dL (65-100) H 10/13/20 23:17 POC Glucose 409 mg/dL (70-105) H 10/14/20 11:30 Calcium 7.6 mg/dL (8.4-10.2) L 10/13/20 21:02 Ferritin 197.0 ng/mL (10.0-200.0) 10/13/20 23:17 Lactate Dehydrogenase 244 units/L (91-180) H 10/13/20 23:17 Total Creatine Kinase 110 units/L (30-135) 10/13/20 21:02 CK-MB (CK-2) 3.5 ng/mL (0.0-4.0) 10/13/20 21:02 CK-MB (CK-2) Rel Index 3.1 (0-4) 10/13/20 21:02 Troponin T 0.041 ng/mL (0.00-0.029) H 10/13/20 21:02 C-Reactive Protein 6.90 mg/dL (0.00-1.30) H 10/13/20 23:17 NT-Pro-B Natriuret Pep 4997 pg/mL (0-900) H 10/13/20 21:02 Triglycerides 73 mg/dL (2-149) 10/13/20 21:02 Cholesterol 207 mg/dL (50-199) H 10/13/20 21:02 LDL Cholesterol Direct 72 mg/dL (50-130) 10/13/20 21:02 HDL Cholesterol 125 mg/dL (40-59) H 10/13/20 21:02 Cholesterol/HDL Ratio 1.65 % 10/13/20 21:02 Active Medications - Current Medications Current Medications: Generic Name Dose Route Start Last Admin Trade Name Freq PRN Reason Stop Dose Admin Acetaminophen 650 mg 10/14/20 00:48 Acetaminophen 325 Mg Tab PO Q4H PRN Pain MILD(1-3)/Fever >100.5/CAMACHO Dextrose 50 ml 10/14/20 00:48 Dextrose 50% In Water (25gm) 50 Ml Syringe IV Q30MIN PRN Hypoglycemia Protocol Enoxaparin Sodium 40 mg 10/14/20 22:00 Enoxaparin 40 Mg/0.4 Ml Inj SUB-Q QDAY@2200 [facility] Protocol Furosemide 40 mg 10/14/20 06:00 10/14/20 06:00 Furosemide 40 Mg/4 Ml Inj IV 40 mg BID@0600,1800 MELANY Administration Ceftriaxone Sodium 2 gm in 100 mls @ 200 mls/hr 10/14/20 22:00 Rocephin/Ns 2 Gm/100 Ml IV Q24H MELANY Protocol Azithromycin 500 mg/ Sodium 250 mls @ 250 mls/hr 10/14/20 22:00 Chloride IV 10/17/20 22:59 Q24H [facility] Protocol Insulin Glargine 20 units 10/14/20 12:21 Insulin Glargine 100 Units/Ml SUB-Q 10/14/20 12:22 ONCE ONE Insulin Glargine 25 units 10/14/20 22:00 Insulin Glargine 100 Units/Ml SUB-Q QHS [facility] Insulin Human Lispro 0 unit 10/14/20 07:30 10/14/20 11:48 Insulin Lispro 100 Unit/Ml Vial 3 Ml SUB-Q 8 unit ACHS MELANY Administration Protocol Insulin Human Lispro 15 unit 10/14/20 16:30 Insulin Lispro 100 Unit/Ml Vial 3 Ml SUB-Q AC MELANY Magnesium Hydroxide 30 ml 10/14/20 00:48 Magnesium Hydroxide (Mom) Oral Liqd Udc PO Q4H PRN Constipation Morphine Sulfate 2 mg 10/14/20 00:48 Morphine 2 Mg/1 Ml Inj IV Q4H PRN Pain, Moderate (4-6) Ondansetron HCl 4 mg 10/14/20 00:48 Ondansetron 4 Mg/2 Ml Inj IV Q8H PRN Nausea And Vomiting Sodium Chloride 10 ml 10/14/20 10:00 10/14/20 11:51 Sodium Chloride 0.9% 10 Ml Flush Syringe IV 10 ml BID MELANY Administration Sodium Chloride 10 ml 10/14/20 00:48 Sodium Chloride 0.9% 10 Ml Flush Syringe IV PRN PRN LINE FLUSH
[2020-10-14] MEDS ORDERED: INSULIN GLARGINE 100 UNITS/ML SUB-Q ONE (13:00)
--- NOTE | 2020-10-14 16:26 | Event Note ---
Date: 10/14/20 Infectious diseases was consulted for COVID-19 PUI. COVID-19 PCR has returned negative. Patient has been afebrile. She is being seen by cardiology for CHF exacerbation. ID will sign off.
[2020-10-14] MEDS: cefTRIAXone/NS 2 GM/100 ML 2 GM/100 ML BAG IV SCH (21:56)
[2020-10-14] MEDS ORDERED: AZITHROMYCIN 500 MG in SODIUM CHLORIDE 0.9% 250ML 250 ML IV SCH (22:00)
[2020-10-14] MEDS: ENOXAPARIN 40 MG/0.4 ML INJ SUB-Q SCH (22:08)
[2020-10-14] MEDS: INSULIN GLARGINE 100 UNITS/ML SUB-Q SCH (22:39)
[2020-10-15] MEDS: FUROSEMIDE 40 MG/4 ML INJ IV SCH ×2 (05:40→18:28)
[2020-10-15 06:27] LABS: Basophils % (Auto) 0.2 % (0.0-1.8); Eosinophils % (Auto) 0.2 % (0.0-4.3); Hematocrit 20.8 % (30.3-42.9); Hemoglobin 6.8 gm/dl (10.1-14.3); Lymphocytes # (Auto) 0.6 K/mm3 (1.2-5.4); Lymphocytes % (Auto) 8.8 % (13.4-35.0); Mean Corpuscular HGB Conc 33 % (30-34); Mean Corpuscular Volume 81 fl (79-97); Monocytes # (Auto) 0.5 K/mm3 (0.0-0.8); Monocytes % (Auto) 7.5 % (0.0-7.3); Platelet Count 268 K/mm3 (140-440); Red Blood Count 2.58 M/mm3 (3.65-5.03); Red Cell Distribution Width 17.1 % (13.2-15.2)
[2020-10-15 06:41] LABS: INR 1.04 (0.87-1.13)
[2020-10-15 06:44] LABS: Calcium 7.2 mg/dL (8.4-10.2)
[2020-10-15] MEDS: INSULIN LISPRO 100 UNIT/ML VIAL 3 mL SUB-Q SCH ×7 (07:40→21:55)
[2020-10-15] MEDS ORDERED: SODIUM CHLORIDE 0.9% 500 ML 500 ML IV NR (07:48)
--- NOTE | 2020-10-15 07:54 | Progress Note ---
Assessment and Plan Assessment and plan: Anemia -Hemoglobin was 7.2 on admission and this morning it was 6.8, will transfuse a unit of blood -We will monitor H&H -Anemia work-up including iron, TIBC, ferritin, vitamin B12, folate and fecal occult blood test is ordered. -If FOBT is positive will consult GI (1) CHF exacerbation Current Visit: Yes Status: Acute Plan to address problem: Patient placed on diuretics. Will monitor inputs and output and also monitor daily weight. She will be scheduled for echocardiogram. (2) Hypertension Current Visit: Yes Status: Acute Plan to address problem: We will place patient on her routine home medications and monitor vital signs closely.We (3) Diabetes mellitus Current Visit: Yes Status: Acute Plan to address problem: We will monitor Accu-Cheks. (4) Pneumonia Current Visit: Yes Status: Acute Plan to address problem: Patient placed on empiric IV antibiotics. Meanwhile we will also test patient for COVID-19. Infectious disease will be consulted for evaluation. (5) DVT prophylaxis Current Visit: Yes Status: Acute Plan to address problem: Patient placed on subcutaneous Lovenox. (6) Full code status Current Visit: Yes Status: Acute 10/14/2020; patient is admitted for the management of suspected pneumonia, PUI, CHF exacerbation. Echo was ordered. Cardiology was consulted. His blood pressure is controlled. Diabetes is uncontrolled and I put Lantus 20 units to be taken now, 25 units nightly, 15 units AC insulin and sliding scale insulin. ADA diet, Accu-Chek and adjust insulin as needed. 10/14/2020; patient stated she has history of CHF and has significantly increased proBNP patient is being managed for CHF exacerbation need echo. Patient is on IV Lasix and IV antibiotic. COVID-19 test is negative. Cardiology consulted. History Interval history: Patient was seen and evaluated this morning Patient is on 3 L of intranasal oxygen Does not have any complaints Hospitalist Physical - Physical exam Narrative exam: Not in cardiopulmonary distress. The patient appeared well nourished and normally developed. Vital signs as documented. Head exam is unremarkable. No scleral icterus . Neck is without jugular venous distension, thyromegaly, or carotid bruits. Lungs are clear to auscultation. Cardiac exam reveals regular rate and Rhythm. Abdominal exam reveals normal bowel sounds, nontender, no organomegaly. Extremities are nonedematous and both femoral and pedal pulses are normal. TWISTER DOFFER: Alert and oriented 3. No focal weakness. - Constitutional Vitals: Temp Pulse Resp BP Pulse Ox 98.2 F 88 17 137/78 95 10/14/20 19:25 10/15/20 06:00 10/15/20 06:00 10/15/20 06:00 10/15/20 06:00 General appearance: Present: no acute distress HEART Score - HEART Score Troponin: Troponin T 0.041 ng/mL (0.00-0.029) H 10/13/20 21:02 Results - Labs CBC & Chem 7: 10/15/20 05:43 10/15/20 05:43 Labs: Laboratory Last Values WBC 7.2 K/mm3 (4.5-11.0) 10/15/20 05:43 RBC 2.58 M/mm3 (3.65-5.03) L 10/15/20 05:43 Hgb 6.8 gm/dl (10.1-14.3) L 10/15/20 05:43 Hct 20.8 % (30.3-42.9) L 10/15/20 05:43 MCV 81 fl (79-97) 10/15/20 05:43 MCH 26 pg (28-32) L 10/15/20 05:43 MCHC 33 % (30-34) 10/15/20 05:43 RDW 17.1 % (13.2-15.2) H 10/15/20 05:43 Plt Count 268 K/mm3 (140-440) 10/15/20 05:43 Lymph % (Auto) 8.8 % (13.4-35.0) L 10/15/20 05:43 Mclennan % (Auto) 7.5 % (0.0-7.3) H 10/15/20 05:43 Eos % (Auto) 0.2 % (0.0-4.3) 10/15/20 05:43 Baso % (Auto) 0.2 % (0.0-1.8) 10/15/20 05:43 Lymph # (Auto) 0.6 K/mm3 (1.2-5.4) L 10/15/20 05:43 Mclennan # (Auto) 0.5 K/mm3 (0.0-0.8) 10/15/20 05:43 Eos # (Auto) 0.0 K/mm3 (0.0-0.4) 10/15/20 05:43 Baso # (Auto) 0.0 K/mm3 (0.0-0.1) 10/15/20 05:43 Add Manual Diff Complete 10/13/20 21:02 Total Counted 100 10/13/20 21:02 Seg Neutrophils % 83.3 % (40.0-70.0) H 10/15/20 05:43 Seg Neuts % (Manual) 92.0 % (40.0-70.0) H 10/13/20 21:02 Lymphocytes % (Manual) 5.0 % (13.4-35.0) L 10/13/20 21:02 Monocytes % (Manual) 3.0 % (0.0-7.3) 10/13/20 21:02 Nucleated RBC % Not Reportable 10/13/20 21:02 Seg Neutrophils # 6.0 K/mm3 (1.8-7.7) 10/15/20 05:43 Seg Neutrophils # Man 7.5 K/mm3 (1.8-7.7) 10/13/20 21:02 Band Neutrophils # 0.0 K/mm3 10/13/20 21:02 Lymphocytes # (Manual) 0.4 K/mm3 (1.2-5.4) L 10/13/20 21:02 Abs React Lymphs (Man) 0.0 K/mm3 10/13/20 21:02 Monocytes # (Manual) 0.2 K/mm3 (0.0-0.8) 10/13/20 21:02 Eosinophils # (Manual) 0.0 K/mm3 (0.0-0.4) 10/13/20 21:02 Basophils # (Manual) 0.0 K/mm3 (0.0-0.1) 10/13/20 21:02 Metamyelocytes # 0.0 K/mm3 10/13/20 21:02 Myelocytes # 0.0 K/mm3 10/13/20 21:02 Promyelocytes # 0.0 K/mm3 10/13/20 21:02 Blast Cells # 0.0 K/mm3 10/13/20 21:02 WBC Morphology Not Reportable 10/13/20 21:02 Hypersegmented Neuts Not Reportable 10/13/20 21:02 Hyposegmented Neuts Not Reportable 10/13/20 21:02 Hypogranular Neuts Not Reportable 10/13/20 21:02 Smudge Cells Not Reportable 10/13/20 21:02 Toxic Granulation Not Reportable 10/13/20 21:02 Toxic Vacuolation Not Reportable 10/13/20 21:02 Dohle Bodies Not Reportable 10/13/20 21:02 Pelger-Huet Anomaly Not Reportable 10/13/20 21:02 Mike Rods Not Reportable 10/13/20 21:02 Platelet Estimate Consistent w auto 10/13/20 21:02 Clumped Platelets Not Reportable 10/13/20 21:02 Plt Clumps, EDTA Not Reportable 10/13/20 21:02 Large Platelets Not Reportable 10/13/20 21:02 Giant Platelets Not Reportable 10/13/20 21:02 Platelet Satelliting Not Reportable 10/13/20 21:02 Plt Morphology Comment Not Reportable 10/13/20 21:02 RBC Morphology Not Reportable 10/13/20 21:02 Dimorphic RBCs Not Reportable 10/13/20 21:02 Polychromasia Not Reportable 10/13/20 21:02 Hypochromasia Not Reportable 10/13/20 21:02 Poikilocytosis Not Reportable 10/13/20 21:02 Anisocytosis Not Reportable 10/13/20 21:02 Microcytosis Not Reportable 10/13/20 21:02 Macrocytosis Not Reportable 10/13/20 21:02 Spherocytes Not Reportable 10/13/20 21:02 Pappenheimer Bodies Not Reportable 10/13/20 21:02 Sickle Cells Not Reportable 10/13/20 21:02 Target Cells Not Reportable 10/13/20 21:02 Tear Drop Cells Not Reportable 10/13/20 21:02 Ovalocytes Rare 10/13/20 21:02 Helmet Cells Not Reportable 10/13/20 21:02 Nunez-Mesita Bodies Not Reportable 10/13/20 21:02 Ringsted Rings Not Reportable 10/13/20 21:02 Ten Sleep Cells Not Reportable 10/13/20 21:02 Bite Cells Not Reportable 10/13/20 21:02 Crenated Cell Not Reportable 10/13/20 21:02 Elliptocytes Not Reportable 10/13/20 21:02 Acanthocytes (Spur) Not Reportable 10/13/20 21:02 Rouleaux Not Reportable 10/13/20 21:02 Hemoglobin C Crystals Not Reportable 10/13/20 21:02 Schistocytes Not Reportable 10/13/20 21:02 Malaria parasites Not Reportable 10/13/20 21:02 Malcom Bodies Not Reportable 10/13/20 21:02 Hem Pathologist Commnt No 10/13/20 21:02 PT 13.4 Sec. (12.2-14.9) 10/15/20 05:43 INR 1.04 (0.87-1.13) 10/15/20 05:43 D-Dimer 1239.20 ng/mlDDU (0-234) H 10/13/20 23:17 ABG pH 7.406 pH Units (7.350-7.450) 10/13/20 22:15 ABG pCO2 40.4 mm Hg 10/13/20 22:15 ABG pO2 68.4 mm Hg (80.0-90.0) L 10/13/20 22:15 ABG HCO3 24.8 mmol/L (20.0-26.0) 10/13/20 22:15 ABG O2 Saturation 94.2 % (95.0-99.0) L 10/13/20 22:15 ABG O2 Content 11.1 (0.0-44) 10/13/20 22:15 ABG Base Excess 0.1 mmol/L (-2.0-3.0) 10/13/20 22:15 ABG Hemoglobin 8.6 gm/dl (12.0-16.0) L 10/13/20 22:15 ABG Carboxyhemoglobin 2.1 % (0.0-5.0) 10/13/20 22:15 ABG Methemoglobin 0.6 % (0.0-1.5) 10/13/20 22:15 Oxyhemoglobin 91.6 % (95.0-99.0) L 10/13/20 22:15 FiO2 36 % 10/13/20 22:15 Sodium 142 mmol/L (137-145) 10/15/20 05:43 Potassium 4.3 mmol/L (3.6-5.0) 10/15/20 05:43 Chloride 103.4 mmol/L (98-107) 10/15/20 05:43 Carbon Dioxide 27 mmol/L (22-30) 10/15/20 05:43 Anion Gap 16 mmol/L 10/15/20 05:43 BUN 29 mg/dL (7-17) H 10/15/20 05:43 Creatinine 1.1 mg/dL (0.6-1.2) 10/15/20 05:43 Estimated GFR 59 ml/min 10/15/20 05:43 BUN/Creatinine Ratio 26 % 10/15/20 05:43 Glucose 95 mg/dL (65-100) 10/15/20 05:43 POC Glucose 121 mg/dL (70-105) H 10/14/20 22:19 Calcium 7.2 mg/dL (8.4-10.2) L 10/15/20 05:43 Ferritin 197.0 ng/mL (10.0-200.0) 10/13/20 23:17 Lactate Dehydrogenase 244 units/L (91-180) H 10/13/20 23:17 Total Creatine Kinase 110 units/L (30-135) 10/13/20 21:02 CK-MB (CK-2) 3.5 ng/mL (0.0-4.0) 10/13/20 21:02 CK-MB (CK-2) Rel Index 3.1 (0-4) 10/13/20 21:02 Troponin T 0.041 ng/mL (0.00-0.029) H 10/13/20 21:02 C-Reactive Protein 6.90 mg/dL (0.00-1.30) H 10/13/20 23:17 NT-Pro-B Natriuret Pep 4997 pg/mL (0-900) H 10/13/20 21:02 Triglycerides 73 mg/dL (2-149) 10/13/20 21:02 Cholesterol 207 mg/dL (50-199) H 10/13/20 21:02 LDL Cholesterol Direct 72 mg/dL (50-130) 10/13/20 21:02 HDL Cholesterol 125 mg/dL (40-59) H 10/13/20 21:02 Cholesterol/HDL Ratio 1.65 % 10/13/20 21:02 Procalcitonin 0.21 ng/mL (<0.15) 10/13/20 23:17 Coronavirus (PCR) Negative (Negative) 10/14/20 10:18 Bradley/IV: IV Catheter Type [Right INT / Saline Lock Antecubital] Active Medications - Current Medications Current Medications: Generic Name Dose Route Start Last Admin Trade Name Freq PRN Reason Stop Dose Admin Acetaminophen 650 mg 10/14/20 00:48 Acetaminophen 325 Mg Tab PO Q4H PRN Pain MILD(1-3)/Fever >100.5/CAMACHO Azithromycin 500 mg 10/15/20 22:00 Azithromycin 250 Mg Tab PO 10/17/20 22:01 QHS MELANY Dextrose 50 ml 10/14/20 00:48 Dextrose 50% In Water (25gm) 50 Ml Syringe IV Q30MIN PRN Hypoglycemia Protocol Enoxaparin Sodium 40 mg 10/14/20 22:00 10/14/20 22:08 Enoxaparin 40 Mg/0.4 Ml Inj SUB-Q 40 mg QDAY@2200 MELANY Administration Protocol Furosemide 40 mg 10/14/20 06:00 10/15/20 05:40 Furosemide 40 Mg/4 Ml Inj IV 40 mg BID@0600,1800 MELANY Administration Ceftriaxone Sodium 2 gm in 100 mls @ 200 mls/hr 10/14/20 22:00 10/14/20 21:56 Rocephin/Ns 2 Gm/100 Ml IV 10/19/20 23:59 200 mls/hr Q24H MELANY Administration Protocol Sodium Chloride 500 mls @ 0 mls/hr 10/15/20 07:48 Nacl 0.9% 500 Ml IV 10/15/20 07:49 ONCE ONE As Directed Insulin Glargine 25 units 10/14/20 22:00 10/14/20 22:39 Insulin Glargine 100 Units/Ml SUB-Q 25 units QHS MELANY Administration Insulin Human Lispro 0 unit 10/14/20 07:30 10/14/20 22:39 Insulin Lispro 100 Unit/Ml Vial 3 Ml SUB-Q Not Given ACHS MELANY Protocol Insulin Human Lispro 15 unit 10/14/20 16:30 10/14/20 16:13 Insulin Lispro 100 Unit/Ml Vial 3 Ml SUB-Q 15 unit AC MELANY Administration Magnesium Hydroxide 30 ml 10/14/20 00:48 Magnesium Hydroxide (Mom) Oral Liqd Udc PO Q4H PRN Constipation Morphine Sulfate 2 mg 10/14/20 00:48 Morphine 2 Mg/1 Ml Inj IV Q4H PRN Pain, Moderate (4-6) Ondansetron HCl 4 mg 10/14/20 00:48 Ondansetron 4 Mg/2 Ml Inj IV Q8H PRN Nausea And Vomiting Sodium Chloride 10 ml 10/14/20 10:00 10/14/20 21:58 Sodium Chloride 0.9% 10 Ml Flush Syringe IV 10 ml BID MELANY Administration Sodium Chloride 10 ml 10/14/20 00:48 Sodium Chloride 0.9% 10 Ml Flush Syringe IV PRN PRN LINE FLUSH
[2020-10-15 10:38] LABS: Iron 21 ug/dL (37-170); Total Iron Binding Capacity 243 mcg/dL (250-450)
--- NOTE | 2020-10-15 10:58 | Progress Note ---
Assessment and Plan - Patient Problems (1) Shortness of breath Current Visit: Yes Status: Acute Plan to address problem: Patient is admitted with shortness of breath and abnormal chest x-ray, COVID-19 test was negative. We order echocardiogram for left ventricular function assessment. (2) Anemia Current Visit: Yes Status: Acute Plan to address problem: Defer to internal medicine for further evaluation and management of the patient's anemia. Subjective Date of service: 10/15/20 Interval history: Patient is comfortable, no new cardiac complaints, the COVID-19 test was negative. She has a persistent anemia with most recent hematocrit down to 20. Objective Vital Signs Temp Pulse Resp BP BP Pulse Ox 10/15/20 06:00 88 17 137/78 95 10/15/20 05:30 85 18 138/75 100 10/15/20 05:01 87 15 158/70 100 10/15/20 04:30 84 14 154/70 100 10/15/20 04:00 81 21 140/70 94 10/15/20 03:30 90 22 162/84 92 10/15/20 03:00 87 17 155/86 97 10/15/20 02:30 86 18 158/90 94 10/15/20 02:00 89 15 152/80 94 10/15/20 01:30 88 15 156/78 89 10/15/20 01:00 87 13 144/85 94 10/15/20 00:30 82 15 148/78 97 10/15/20 00:04 81 12 135/71 98 10/15/20 00:01 84 14 95 10/14/20 23:31 81 14 94 10/14/20 23:01 82 16 95 10/14/20 22:31 82 14 97 10/14/20 22:01 79 14 96 10/14/20 21:31 81 13 95 10/14/20 21:01 83 16 97 10/14/20 20:31 83 15 135/71 95 10/14/20 19:30 128/69 95 10/14/20 19:25 98.2 F 84 15 135/71 95 10/14/20 18:30 139/62 97 10/14/20 18:00 138/74 95 10/14/20 17:30 127/55 99 10/14/20 17:00 130/55 97 10/14/20 16:31 149/67 94 10/14/20 16:00 130/60 94 10/14/20 15:30 138/56 93 10/14/20 15:01 133/53 92 10/14/20 14:30 134/63 91 10/14/20 14:02 133/66 93 10/14/20 13:31 145/58 90 10/14/20 13:00 143/78 89 10/14/20 12:30 120/54 97 10/14/20 12:00 136/55 98 10/14/20 11:30 138/60 96 10/14/20 11:00 127/56 97 - Physical Examination General: No Apparent Distress HEENT: Positive: PERRL Neck: Positive: neck supple Cardiac: Positive: Reg Rate and Rhythm Lungs: Positive: Decreased Breath Sounds Neuro: Positive: Grossly Intact Abdomen: Positive: Soft Skin: Positive: Clear Extremities: Absent: edema - Labs and Meds Coagulation 10/15/20 Range/Units 05:43 PT 13.4 (12.2-14.9) Sec. INR 1.04 (0.87-1.13) CBC 10/15/20 Range/Units 05:43 WBC 7.2 (4.5-11.0) K/mm3 RBC 2.58 L (3.65-5.03) M/mm3 Hgb 6.8 L (10.1-14.3) gm/dl Hct 20.8 L (30.3-42.9) % Plt Count 268 (140-440) K/mm3 Lymph # (Auto) 0.6 L (1.2-5.4) K/mm3 Richardson # (Auto) 0.5 (0.0-0.8) K/mm3 Eos # (Auto) 0.0 (0.0-0.4) K/mm3 Baso # (Auto) 0.0 (0.0-0.1) K/mm3 Comprehensive Metabolic Panel 10/15/20 Range/Units 05:43 Sodium 142 (137-145) mmol/L Potassium 4.3 (3.6-5.0) mmol/L Chloride 103.4 (98-107) mmol/L Carbon Dioxide 27 (22-30) mmol/L BUN 29 H (7-17) mg/dL Creatinine 1.1 (0.6-1.2) mg/dL Glucose 95 (65-100) mg/dL Calcium 7.2 L (8.4-10.2) mg/dL
[2020-10-15 16:56] LABS: Hematocrit 25.3 % (30.3-42.9); Hemoglobin 8.3 gm/dl (10.1-14.3)
[2020-10-15] MEDS: ENOXAPARIN 40 MG/0.4 ML INJ SUB-Q SCH (21:53)
[2020-10-15] MEDS: INSULIN GLARGINE 100 UNITS/ML SUB-Q SCH (21:57)
[2020-10-15] MEDS ORDERED: AZITHROMYCIN 250 MG TAB PO SCH (22:00)
[2020-10-15] MEDS: cefTRIAXone/NS 2 GM/100 ML 2 GM/100 ML BAG IV SCH (22:26)
[2020-10-16 05:08] LABS: Hematocrit 26.9 % (30.3-42.9); Hemoglobin 8.7 gm/dl (10.1-14.3); Mean Corpuscular HGB Conc 33 % (30-34); Mean Corpuscular Volume 79 fl (79-97); Platelet Count 277 K/mm3 (140-440); Red Blood Count 3.42 M/mm3 (3.65-5.03); Red Cell Distribution Width 19.6 % (13.2-15.2)
[2020-10-16 05:11] LABS: Lymphocytes % (Auto) 8.1 % (13.4-35.0)
[2020-10-16 05:12] LABS: Basophils # (Auto) 0.1 K/mm3 (0.0-0.1); Basophils % (Auto) 1.8 % (0.0-1.8); Eosinophils % (Auto) 0.6 % (0.0-4.3); Lymphocytes # (Auto) 0.6 K/mm3 (1.2-5.4); Monocytes # (Auto) 0.6 K/mm3 (0.0-0.8); Monocytes % (Auto) 7.3 % (0.0-7.3)
[2020-10-16 05:27] LABS: BUN/Creatinine Ratio 22; Blood Urea Nitrogen 20 mg/dL (7-17); Calcium 7.2 mg/dL (8.4-10.2); Hemolysis Index 0
[2020-10-16] MEDS: FUROSEMIDE 40 MG/4 ML INJ IV SCH (06:30)
[2020-10-16] MEDS: INSULIN LISPRO 100 UNIT/ML VIAL 3 mL SUB-Q SCH ×4 (08:00→12:43)
--- NOTE | 2020-10-16 08:11 | Progress Note ---
Assessment and Plan Assessment and plan: Anemia -Hemoglobin was 7.2 on admission and this morning it was 6.8, will transfuse a unit of blood -We will monitor H&H -Anemia work-up including iron, TIBC, ferritin, vitamin B12, folate and fecal occult blood test is ordered. -If FOBT is positive will consult GI (1) CHF exacerbation Current Visit: Yes Status: Acute Plan to address problem: Patient placed on diuretics. Will monitor inputs and output and also monitor daily weight. She will be scheduled for echocardiogram. (2) Hypertension Current Visit: Yes Status: Acute Plan to address problem: We will place patient on her routine home medications and monitor vital signs closely.We (3) Diabetes mellitus Current Visit: Yes Status: Acute Plan to address problem: We will monitor Accu-Cheks. (4) Pneumonia Current Visit: Yes Status: Acute Plan to address problem: Patient placed on empiric IV antibiotics. Meanwhile we will also test patient for COVID-19. Infectious disease will be consulted for evaluation. (5) DVT prophylaxis Current Visit: Yes Status: Acute Plan to address problem: Patient placed on subcutaneous Lovenox. (6) Full code status Current Visit: Yes Status: Acute 10/14/2020; patient is admitted for the management of suspected pneumonia, PUI, CHF exacerbation. Echo was ordered. Cardiology was consulted. His blood pressure is controlled. Diabetes is uncontrolled and I put Lantus 20 units to be taken now, 25 units nightly, 15 units AC insulin and sliding scale insulin. ADA diet, Accu-Chek and adjust insulin as needed. 10/15/2020; patient stated she has history of CHF and has significantly increased proBNP patient is being managed for CHF exacerbation need echo. Patient is on IV Lasix and IV antibiotic. COVID-19 test is negative. Cardiology consulted. 10/16/2020; patient said she has history of CHF and echo reading noted. Cardiology consult appreciated. Patient states she was on oxygen at home with 2 units of blood. Continue IV Lasix and IV antibiotic for now. Patient was transfused 2 units of blood and posttransfusion hemoglobin is 8.7. Anemia work- up was done and suggestive of anemia of chronic illness. History Interval history: Patient was seen and evaluated this morning Patient is on 4 L of intranasal oxygen Does not have any complaints Hospitalist Physical - Physical exam Narrative exam: Not in cardiopulmonary distress. The patient appeared well nourished and normally developed. Vital signs as documented. Head exam is unremarkable. No scleral icterus . Neck is without jugular venous distension, thyromegaly, or carotid bruits. Lungs are clear to auscultation. Cardiac exam reveals regular rate and Rhythm. Abdominal exam reveals normal bowel sounds, nontender, no organomegaly. Extremities are nonedematous and both femoral and pedal pulses are normal. BOX LOADER: Alert and oriented 3. No focal weakness. - Constitutional Vitals: Temp Pulse Resp BP Pulse Ox 99 F 92 H 17 162/91 98 10/15/20 13:10 10/16/20 03:14 10/16/20 01:30 10/16/20 06:00 10/16/20 06:00 General appearance: Present: no acute distress HEART Score - HEART Score Troponin: Troponin T 0.041 ng/mL (0.00-0.029) H 10/13/20 21:02 Results - Labs CBC & Chem 7: 10/16/20 04:14 10/16/20 04:14 Labs: Laboratory Last Values WBC 7.8 K/mm3 (4.5-11.0) 10/16/20 04:14 RBC 3.42 M/mm3 (3.65-5.03) L 10/16/20 04:14 Hgb 8.7 gm/dl (10.1-14.3) L 10/16/20 04:14 Hct 26.9 % (30.3-42.9) L 10/16/20 04:14 MCV 79 fl (79-97) 10/16/20 04:14 MCH 26 pg (28-32) L 10/16/20 04:14 MCHC 33 % (30-34) 10/16/20 04:14 RDW 19.6 % (13.2-15.2) H 10/16/20 04:14 Plt Count 277 K/mm3 (140-440) 10/16/20 04:14 Lymph % (Auto) 8.1 % (13.4-35.0) L 10/16/20 04:14 Guthrie % (Auto) 7.3 % (0.0-7.3) 10/16/20 04:14 Eos % (Auto) 0.6 % (0.0-4.3) 10/16/20 04:14 Baso % (Auto) 1.8 % (0.0-1.8) 10/16/20 04:14 Lymph # (Auto) 0.6 K/mm3 (1.2-5.4) L 10/16/20 04:14 Guthrie # (Auto) 0.6 K/mm3 (0.0-0.8) 10/16/20 04:14 Eos # (Auto) 0.0 K/mm3 (0.0-0.4) 10/16/20 04:14 Baso # (Auto) 0.1 K/mm3 (0.0-0.1) 10/16/20 04:14 Add Manual Diff Complete 10/13/20 21:02 Total Counted 100 10/13/20 21:02 Seg Neutrophils % 82.2 % (40.0-70.0) H 10/16/20 04:14 Seg Neuts % (Manual) 92.0 % (40.0-70.0) H 10/13/20 21:02 Lymphocytes % (Manual) 5.0 % (13.4-35.0) L 10/13/20 21:02 Monocytes % (Manual) 3.0 % (0.0-7.3) 10/13/20 21:02 Nucleated RBC % Not Reportable 10/13/20 21:02 Seg Neutrophils # 6.4 K/mm3 (1.8-7.7) 10/16/20 04:14 Seg Neutrophils # Man 7.5 K/mm3 (1.8-7.7) 10/13/20 21:02 Band Neutrophils # 0.0 K/mm3 10/13/20 21:02 Lymphocytes # (Manual) 0.4 K/mm3 (1.2-5.4) L 10/13/20 21:02 Abs React Lymphs (Man) 0.0 K/mm3 10/13/20 21:02 Monocytes # (Manual) 0.2 K/mm3 (0.0-0.8) 10/13/20 21:02 Eosinophils # (Manual) 0.0 K/mm3 (0.0-0.4) 10/13/20 21:02 Basophils # (Manual) 0.0 K/mm3 (0.0-0.1) 10/13/20 21:02 Metamyelocytes # 0.0 K/mm3 10/13/20 21:02 Myelocytes # 0.0 K/mm3 10/13/20 21:02 Promyelocytes # 0.0 K/mm3 10/13/20 21:02 Blast Cells # 0.0 K/mm3 10/13/20 21:02 WBC Morphology Not Reportable 10/13/20 21:02 Hypersegmented Neuts Not Reportable 10/13/20 21:02 Hyposegmented Neuts Not Reportable 10/13/20 21:02 Hypogranular Neuts Not Reportable 10/13/20 21:02 Smudge Cells Not Reportable 10/13/20 21:02 Toxic Granulation Not Reportable 10/13/20 21:02 Toxic Vacuolation Not Reportable 10/13/20 21:02 Dohle Bodies Not Reportable 10/13/20 21:02 Pelger-Huet Anomaly Not Reportable 10/13/20 21:02 Mike Rods Not Reportable 10/13/20 21:02 Platelet Estimate Consistent w auto 10/13/20 21:02 Clumped Platelets Not Reportable 10/13/20 21:02 Plt Clumps, EDTA Not Reportable 10/13/20 21:02 Large Platelets Not Reportable 10/13/20 21:02 Giant Platelets Not Reportable 10/13/20 21:02 Platelet Satelliting Not Reportable 10/13/20 21:02 Plt Morphology Comment Not Reportable 10/13/20 21:02 RBC Morphology Not Reportable 10/13/20 21:02 Dimorphic RBCs Not Reportable 10/13/20 21:02 Polychromasia Not Reportable 10/13/20 21:02 Hypochromasia Not Reportable 10/13/20 21:02 Poikilocytosis Not Reportable 10/13/20 21:02 Anisocytosis Not Reportable 10/13/20 21:02 Microcytosis Not Reportable 10/13/20 21:02 Macrocytosis Not Reportable 10/13/20 21:02 Spherocytes Not Reportable 10/13/20 21:02 Pappenheimer Bodies Not Reportable 10/13/20 21:02 Sickle Cells Not Reportable 10/13/20 21:02 Target Cells Not Reportable 10/13/20 21:02 Tear Drop Cells Not Reportable 10/13/20 21:02 Ovalocytes Rare 10/13/20 21:02 Helmet Cells Not Reportable 10/13/20 21:02 Nunez-Rosemount Bodies Not Reportable 10/13/20 21:02 Bandy Rings Not Reportable 10/13/20 21:02 Hans Cells Not Reportable 10/13/20 21:02 Bite Cells Not Reportable 10/13/20 21:02 Crenated Cell Not Reportable 10/13/20 21:02 Elliptocytes Not Reportable 10/13/20 21:02 Acanthocytes (Spur) Not Reportable 10/13/20 21:02 Rouleaux Not Reportable 10/13/20 21:02 Hemoglobin C Crystals Not Reportable 10/13/20 21:02 Schistocytes Not Reportable 10/13/20 21:02 Malaria parasites Not Reportable 10/13/20 21:02 Malcom Bodies Not Reportable 10/13/20 21:02 Hem Pathologist Commnt No 10/13/20 21:02 PT 13.4 Sec. (12.2-14.9) 10/15/20 05:43 INR 1.04 (0.87-1.13) 10/15/20 05:43 D-Dimer 1239.20 ng/mlDDU (0-234) H 10/13/20 23:17 ABG pH 7.406 pH Units (7.350-7.450) 10/13/20 22:15 ABG pCO2 40.4 mm Hg 10/13/20 22:15 ABG pO2 68.4 mm Hg (80.0-90.0) L 10/13/20 22:15 ABG HCO3 24.8 mmol/L (20.0-26.0) 10/13/20 22:15 ABG O2 Saturation 94.2 % (95.0-99.0) L 10/13/20 22:15 ABG O2 Content 11.1 (0.0-44) 10/13/20 22:15 ABG Base Excess 0.1 mmol/L (-2.0-3.0) 10/13/20 22:15 ABG Hemoglobin 8.6 gm/dl (12.0-16.0) L 10/13/20 22:15 ABG Carboxyhemoglobin 2.1 % (0.0-5.0) 10/13/20 22:15 ABG Methemoglobin 0.6 % (0.0-1.5) 10/13/20 22:15 Oxyhemoglobin 91.6 % (95.0-99.0) L 10/13/20 22:15 FiO2 36 % 10/13/20 22:15 Sodium 143 mmol/L (137-145) 10/16/20 04:14 Potassium 3.7 mmol/L (3.6-5.0) 10/16/20 04:14 Chloride 101.9 mmol/L (98-107) 10/16/20 04:14 Carbon Dioxide 31 mmol/L (22-30) H 10/16/20 04:14 Anion Gap 14 mmol/L 10/16/20 04:14 BUN 20 mg/dL (7-17) H 10/16/20 04:14 Creatinine 0.9 mg/dL (0.6-1.2) 10/16/20 04:14 Estimated GFR > 60 ml/min 10/16/20 04:14 BUN/Creatinine Ratio 22 % 10/16/20 04:14 Glucose 44 mg/dL (65-100) L 10/16/20 04:14 POC Glucose 144 mg/dL (70-105) H 10/15/20 20:43 Calcium 7.2 mg/dL (8.4-10.2) L 10/16/20 04:14 Iron 21 ug/dL (37-170) L 10/15/20 08:46 TIBC 243 mcg/dL (250-450) L 10/15/20 08:46 Ferritin 222.1 ng/mL (10.0-200.0) H 10/15/20 08:46 Lactate Dehydrogenase 244 units/L (91-180) H 10/13/20 23:17 Total Creatine Kinase 110 units/L (30-135) 10/13/20 21:02 CK-MB (CK-2) 3.5 ng/mL (0.0-4.0) 10/13/20 21:02 CK-MB (CK-2) Rel Index 3.1 (0-4) 10/13/20 21:02 Troponin T 0.041 ng/mL (0.00-0.029) H 10/13/20 21:02 C-Reactive Protein 6.90 mg/dL (0.00-1.30) H 10/13/20 23:17 NT-Pro-B Natriuret Pep 4997 pg/mL (0-900) H 10/13/20 21:02 Triglycerides 73 mg/dL (2-149) 10/13/20 21:02 Cholesterol 207 mg/dL (50-199) H 10/13/20 21:02 LDL Cholesterol Direct 72 mg/dL (50-130) 10/13/20 21:02 HDL Cholesterol 125 mg/dL (40-59) H 10/13/20 21:02 Cholesterol/HDL Ratio 1.65 % 10/13/20 21:02 Vitamin B12 > 2000 pg/mL (211-911) H 10/15/20 08:46 Procalcitonin 0.21 ng/mL (<0.15) 10/13/20 23:17 Coronavirus (PCR) Negative (Negative) 10/14/20 10:18 Blood Type O POSITIVE 10/15/20 09:21 Antibody Screen Negative 10/15/20 09:21 Crossmatch See Detail 10/15/20 09:21 - Diagnostic Impressions Diagnostic Impressions: Echocardiogram 10/15/20 10:17 Transthoracic Echocardiogram Indication: SOB BP: 137/78 HR: 91 Conclusions *Global left ventricular systolic function is normal. *The estimated ejection fraction is 50-55%. *Mild concentric left ventricular hypertrophy is observed. *There is mild to moderate mitral regurgitation. *There is trace-mild aortic regurgitation. *There is trace tricuspid regurgitation. *There is evidence of mild pulmonary hypertension. *The right ventricular systolic pressure is calculated at 31 mmHg. Findings Left Ventricle: The left ventricular chamber size is normal. Mild concentric left ventricular hypertrophy is observed. Global left ventricular systolic function is normal. The estimated ejection fraction is 50-55%. Left Atrium: The left atrial chamber size is normal. Right Ventricle: The right ventricular cavity size is normal. The right ventricular global systolic function is normal. Right Atrium: The right atrial cavity size is normal. Aortic Valve: The aortic valve is trileaflet. The aortic valve leaflets are mildly thickened. There is trace of aortic regurgitation. There is no evidence of aortic stenosis. Mitral Valve: The mitral valve leaflets are mildly thickened. There is mild to moderate mitral regurgitation. There is no evidence of mitral stenosis. Tricuspid Valve: The tricuspid valve leaflets are normal. There is trace tricuspid regurgitation. The right ventricular systolic pressure is calculated at 31 mmHg. There is evidence of mild pulmonary hypertension. Pulmonic Valve: There is trace pulmonic regurgitation. Pericardium: There is no pericardial effusion. A trivial pericardial effusion is visualized. A left pleural effusion is present. Aorta: There is no dilatation of the ascending aorta. There is no dilatation of the aortic root. Measurements Chambers 2D Name Value Normal Range IVSd (2D) 1.15 cm (0.6 - 1.1) LVPWd (2D) 1.14 cm (0.6 - 1.1) LVIDd (2D) 4.58 cm (3.7 - 5.6) LVIDs (2D) 3.15 cm (2 - 3.8) LV FS (2D) 31.25 % - EF Teichholz (2D) 59.13 % - Ao root diameter (2D) 2.97 cm (2 - 3.7) Volumes/Mass Name Value Normal Range LA ESV SP 4CH (A/L) 86.07 ml - LA ESV SP 2CH (A/L) 82.82 ml - LA ESV BP (A/L) 86.8 ml - LA ESV BP (A/L) index 52.29 ml/m2 - LA ESV SP 4CH (MOD) 79.08 ml - LA ESV SP 2CH (MOD) 80.86 ml - LA ESV BP (MOD) 81.63 ml - LA ESV BP (MOD) index 49.17 ml/m2 - Diastolic/Systolic Function Name Value Normal Range MV E-wave Vmax 1.61 m/sec - MV deceleration time 153.16 msec - MV A-wave Vmax 1.43 m/sec - MV E:A ratio 1.13 ratio - Aortic Valve Name Value Normal Range AV Vmax 1.74 m/sec - AV VTI 32.63 cm - AV peak gradient 12.16 mmHg - AV mean gradient 6.22 mmHg - LVOT diameter 2.11 cm - LVOT Vmax 1.38 m/sec - LVOT VTI 29.01 cm - LVOT peak gradient 7.62 mmHg - LVOT mean gradient 3.85 mmHg - SV LVOT 101.41 ml - TARI (continuity Vmax) 2.77 cm2 - TARI (continuity VTI) 3.11 cm2 - AR PHT 1168.43 msec - AR peak gradient 35.15 mmHg - Ascending Ao 2.92 cm - Mitral Valve Name Value Normal Range MV Vmax 1.66 m/sec - MV VTI 39.32 cm - MV peak gradient 11.06 mmHg - MV mean gradient 5.24 mmHg - MVA (continuity VTI) 2.58 cm2 - Tricuspid Valve Name Value Normal Range TR Vmax 2.65 m/sec - TR peak gradient 28 mmHg - RAP 3 mmHg - RVSP 31 mmHg - Pulmonic Valve/Qp:Qs Name Value Normal Range PV Vmax 0.85 m/sec - PV peak gradient 2.9 mmHg - CA end-diastolic Vmax 1.19 m/sec - PV acceleration time 102.76 msec - Bradley/IV: IV Catheter Type [Right Peripheral IV Antecubital] Active Medications - Current Medications Current Medications: Generic Name Dose Route Start Last Admin Trade Name Freq PRN Reason Stop Dose Admin Acetaminophen 650 mg 10/14/20 00:48 Acetaminophen 325 Mg Tab PO Q4H PRN Pain MILD(1-3)/Fever >100.5/CAMACHO Azithromycin 500 mg 10/15/20 22:00 10/15/20 22:30 Azithromycin 250 Mg Tab PO 10/17/20 22:01 500 mg QHS MELANY Administration Dextrose 50 ml 10/14/20 00:48 Dextrose 50% In Water (25gm) 50 Ml Syringe IV Q30MIN PRN Hypoglycemia Protocol Enoxaparin Sodium 40 mg 10/14/20 22:00 10/15/20 21:53 Enoxaparin 40 Mg/0.4 Ml Inj SUB-Q 40 mg QDAY@2200 MELANY Administration Protocol Furosemide 40 mg 10/14/20 06:00 10/16/20 06:30 Furosemide 40 Mg/4 Ml Inj IV 40 mg BID@0600,1800 MELANY Administration Ceftriaxone Sodium 2 gm in 100 mls @ 200 mls/hr 10/14/20 22:00 10/15/20 22:26 Rocephin/Ns 2 Gm/100 Ml IV 10/19/20 23:59 200 mls/hr Q24H MELANY Administration Protocol Insulin Glargine 25 units 10/14/20 22:00 10/15/20 21:57 Insulin Glargine 100 Units/Ml SUB-Q 25 units QHS MELANY Administration Insulin Human Lispro 0 unit 10/14/20 07:30 10/15/20 21:55 Insulin Lispro 100 Unit/Ml Vial 3 Ml SUB-Q Not Given A[facility]S [facility] Protocol Insulin Human Lispro 15 unit 10/14/20 16:30 10/15/20 18:33 Insulin Lispro 100 Unit/Ml Vial 3 Ml SUB-Q 15 unit AC MELANY Administration Magnesium Hydroxide 30 ml 10/14/20 00:48 Magnesium Hydroxide (Mom) Oral Liqd Udc PO Q4H PRN Constipation Morphine Sulfate 2 mg 10/14/20 00:48 Morphine 2 Mg/1 Ml Inj IV Q4H PRN Pain, Moderate (4-6) Ondansetron HCl 4 mg 10/14/20 00:48 Ondansetron 4 Mg/2 Ml Inj IV Q8H PRN Nausea And Vomiting Sodium Chloride 10 ml 10/14/20 10:00 10/15/20 22:25 Sodium Chloride 0.9% 10 Ml Flush Syringe IV 10 ml BID MELANY Administration Sodium Chloride 10 ml 10/14/20 00:48 Sodium Chloride 0.9% 10 Ml Flush Syringe IV PRN PRN LINE FLUSH Nutrition/Malnutrition Assess - Dietary Evaluation Nutrition/Malnutrition Findings: Nutrition Notes Start: 10/15/20 09:53 Freq: Status: Active Protocol: Document 10/15/20 09:53 LM (Rec: 10/15/20 09:53 LM [id number]) Nutrition Notes Need for Assessment generated from: MD Order Initial or Follow up Brief Note Subjective/Other Information MD consult for diet education. Pt in ED. Nutrition Intervention Follow-Up By: 10/17/20 Additional Comments F/U for diet education
--- NOTE | 2020-10-16 09:19 | XRay Report ---
CHEST 1 VIEW INDICATION: pulm edema COMPARISON: October 13, 2020 FINDINGS: SUPPORT DEVICES: Central venous line has tip in the superior vena cava HEART / MEDIASTINUM: No significant abnormality. LUNGS / PLEURA: Diffuse interstitial pulmonary edema is present with small bilateral pleural effusion s. No pneumothorax. ADDITIONAL FINDINGS: IMPRESSION: 1. No interval change as compared to previous exam Signer Name: Rogelio Artis MD Signed: 10/16/2020 9:14 AM Workstation Name: [id number]
--- NOTE | 2020-10-16 10:35 | Discharge Summary ---
Providers - Providers Date of Admission: 10/13/20 23:36 Date of discharge: 10/16/20 Attending physician: DIONICIO HANSON MD 10/14/20 00:48 Consult to Physician [CONS] Routine Comment: Consulting Provider: GABRIELA REECE Physician Instructions: Reason For Exam: Pneumonia R/O COVID 19 10/14/20 00:49 Consult to Dietitian/Nutrition [CONS] Routine Physician Instructions: Reason For Exam: Reason for Consult: Diet education 10/14/20 07:16 Consult to Cardiology [CONS] Routine Consulting Provider: THEO TRAN Reason For Exam: CHF Primary care physician: DIETITIAN TEACHER Hospitalization Reason for admission: acute on chronic respiratory failure, anemia, fluid overload Condition: Fair Pertinent studies: cxr, echo Hospital course: Patient is a 75-year-old female with known history of diabetes mellitus, history of CVA, breast cancer with last chemotherapy on 02/13/2020, hypertension presenting to the emergency room today complaining of shortness of breath. Shortness of breath is said to have started a few hours prior to reporting to the emergency room. Upon arrival of EMS patient was said to be wheezing and she was administered some nebulizing treatments, Solu-Medrol and Zofran prior to reporting to the emergency room. Patient denies any fever or chills, denies any chest pain, denies any sick contacts and no recent travel, denies any contact with anyone with COVID-19. Work-up in the emergency room today CT angiogram reveals:. Pulmonary edema with moderate-sized bilateral pleural effusions. There are also superimposed patchy airspace opacities throughout the lungs which could be seen with alveolar edema or an atypical infectious/inflammatory process such as viral disease. Multiple scattered pulmonary nodules are present measuring up to 8 mm. Patient being admitted with CHF exacerbation and or underlying pneumonia. Anemia -Hemoglobin was 7.2 on admission and this morning it was 6.8, will transfuse a unit of blood -We will monitor H&H -Anemia work-up including iron, TIBC, ferritin, vitamin B12, folate and fecal occult blood test is ordered. -If FOBT is positive will consult GI (1) CHF exacerbation Current Visit: Yes Status: Acute Plan to address problem: Patient placed on diuretics. Will monitor inputs and output and also monitor daily weight. She will be scheduled for echocardiogram. (2) Hypertension Current Visit: Yes Status: Acute Plan to address problem: We will place patient on her routine home medications and monitor vital signs closely.We (3) Diabetes mellitus Current Visit: Yes Status: Acute Plan to address problem: We will monitor Accu-Cheks. (4) Pneumonia Current Visit: Yes Status: Acute Plan to address problem: Patient placed on empiric IV antibiotics. Meanwhile we will also test patient for COVID-19. Infectious disease will be consulted for evaluation. (5) DVT prophylaxis Current Visit: Yes Status: Acute Plan to address problem: Patient placed on subcutaneous Lovenox. (6) Full code status Current Visit: Yes Status: Acute 10/14/2020; patient is admitted for the management of suspected pneumonia, PUI, CHF exacerbation. Echo was ordered. Cardiology was consulted. His blood pressure is controlled. Diabetes is uncontrolled and I put Lantus 20 units to be taken now, 25 units nightly, 15 units AC insulin and sliding scale insulin. ADA diet, Accu-Chek and adjust insulin as needed. 10/15/2020; patient stated she has history of CHF and has significantly increased proBNP patient is being managed for CHF exacerbation need echo. Patient is on IV Lasix and IV antibiotic. COVID-19 test is negative. Cardiology consulted. 10/16/2020; patient said she has history of CHF and echo reading noted. Cardiology consult appreciated. Patient states she was on oxygen at home with 2 units of blood. Continue IV Lasix and IV antibiotic for now. Patient was transfused 2 units of blood and posttransfusion hemoglobin is 8.7. Anemia work- up was done and suggestive of anemia of chronic illness. patient said she was told she has CHF, COPD but the doctors were not sure nonethless patient is on 2 L of home oxygen. On the day of discharge patient was off oxygen and was not in distress and she wants to go home. I go over her home meds she is on lasix and potassium and other appropriate meds. patient said she is following with multiple specialities and she want to be discharged and follow as an O/p. Disposition: DC-01 TO HOME OR SELFCARE Time spent for discharge: 32 minutes - Discharge Diagnoses (1) Anemia Status: Acute (2) Bilateral pleural effusion Status: Acute (3) Pneumonia Status: Acute (4) Acute and chronic respiratory failure Status: Acute Core Measure Documentation - Palliative Care Palliative Care/ Comfort Measures: Not Applicable - Core Measures Any of the following diagnoses?: none Exam - Physical Exam Narrative exam: Not in cardiopulmonary distress. The patient appeared well nourished and normally developed. Vital signs as documented. Head exam is unremarkable. No scleral icterus . Neck is without jugular venous distension, thyromegaly, or carotid bruits. Lungs are clear to auscultation. Cardiac exam reveals regular rate and Rhythm. Abdominal exam reveals normal bowel sounds, nontender, no organomegaly. Extremities are nonedematous and both femoral and pedal pulses are normal. ALGOLOGIST: Alert and oriented 3. No focal weakness. - Constitutional Vitals: Temp Pulse Resp BP Pulse Ox 99 F 92 H 17 162/91 98 10/15/20 13:10 10/16/20 03:14 10/16/20 01:30 10/16/20 06:00 10/16/20 06:00 Plan Activity: no restrictions Weight Bearing Status: Full Weight Bearing Diet: low salt, diabetic Follow up with: PRIMARY CAREMD [Primary Care Provider] - 7 Days Prescriptions: cefUROXime [Ceftin] 500 mg PO Q12H #20 tablet
--- NOTE | 2020-10-16 10:53 | Progress Note ---
Assessment and Plan - Patient Problems (1) Shortness of breath Current Visit: Yes Status: Acute Plan to address problem: Patient is admitted with shortness of breath and abnormal chest x-ray, COVID-19 test was negative. Echocardiogram showed well-preserved left ventricular systolic function with ejection fraction 50 to 55%, mild to moderate mitral regurgitation and only mild pulmonary hypertension. Further cardiac evaluation will depend on clinical course. We will consider a predischarge or early outpatient Lexiscan thallium stress test. (2) Anemia Current Visit: Yes Status: Acute Subjective Date of service: 10/16/20 Interval history: The patient is comfortable, no acute distress. No chest pain and no shortness of breath. No lower extremity edema. Echocardiogram showed well-preserved left ventricular systolic function with ejection fraction 50 to 55%, mild to moderate mitral regurgitation and only mild pulmonary hypertension. Objective Vital Signs Temp Pulse Resp BP Pulse Ox 10/16/20 06:00 162/91 98 10/16/20 04:30 160/80 97 10/16/20 03:30 149/74 99 10/16/20 03:14 92 H 10/16/20 03:00 149/74 10/16/20 02:00 173/90 10/16/20 01:30 112 H 17 167/83 10/16/20 01:00 100 H 16 161/74 86 10/16/20 00:00 84 18 137/73 94 10/15/20 23:04 93 H 17 154/83 94 10/15/20 23:00 93 H 19 154/83 95 10/15/20 22:50 94 10/15/20 22:36 96 H 15 157/81 100 10/15/20 22:00 92 H 18 153/84 100 10/15/20 21:00 90 20 168/88 100 10/15/20 20:00 96 H 29 H 167/89 100 10/15/20 19:00 95 H 22 155/88 100 10/15/20 14:20 86 163/77 100 10/15/20 14:10 85 163/77 100 10/15/20 14:00 87 163/77 100 10/15/20 13:50 90 166/83 100 10/15/20 13:40 85 23 166/83 100 10/15/20 13:30 87 24 166/83 100 12/21/20 13:20 88 20 171/85 100 10/15/20 13:10 99 F 88 22 166/82 100 10/15/20 13:00 87 21 166/82 100 10/15/20 12:50 94 H 22 174/83 100 10/15/20 12:40 99.1 F 88 21 162/83 100 10/15/20 12:30 90 22 162/83 100 10/15/20 12:25 99.0 F 92 H 24 136/74 100 10/15/20 12:20 24 133/65 100 10/15/20 12:10 17 133/65 100 10/15/20 12:00 15 133/65 100 10/15/20 11:50 17 133/65 100 10/15/20 11:40 13 133/65 100 10/15/20 11:30 23 133/65 77 L 10/15/20 11:26 14 133/65 97 - Physical Examination General: No Apparent Distress HEENT: Positive: PERRL Neck: Positive: neck supple Cardiac: Positive: Reg Rate and Rhythm Lungs: Positive: Decreased Breath Sounds Neuro: Positive: Grossly Intact Abdomen: Positive: Soft Skin: Positive: Clear Extremities: Absent: edema - Labs and Meds CBC 10/15/20 10/16/20 Range/Units 16:36 04:14 WBC 7.8 (4.5-11.0) K/mm3 RBC 3.42 L (3.65-5.03) M/mm3 Hgb 8.3 L 8.7 L (10.1-14.3) gm/dl Hct 25.3 L 26.9 L (30.3-42.9) % Plt Count 277 (140-440) K/mm3 Lymph # (Auto) 0.6 L (1.2-5.4) K/mm3 Caroline # (Auto) 0.6 (0.0-0.8) K/mm3 Eos # (Auto) 0.0 (0.0-0.4) K/mm3 Baso # (Auto) 0.1 (0.0-0.1) K/mm3 Comprehensive Metabolic Panel 10/16/20 Range/Units 04:14 Sodium 143 (137-145) mmol/L Potassium 3.7 (3.6-5.0) mmol/L Chloride 101.9 (98-107) mmol/L Carbon Dioxide 31 H (22-30) mmol/L BUN 20 H (7-17) mg/dL Creatinine 0.9 (0.6-1.2) mg/dL Glucose 44 L (65-100) mg/dL Calcium 7.2 L (8.4-10.2) mg/dL
[2020-10-16 14:12] VITALS: BP 155/72
== END 2020-10-16 16:50 | disposition home or self-care (01) | DRG 291 ==
LOC: ED 19:42 → 3A 23:36
PROVIDERS: ADMIT Internal Medicine Geriatric Medicine; ATTEND Internal Medicine
PROC: 4A033R1 Measurement of Arterial Saturation, Peripheral, Percutaneous Approach (ICD-10-PCS; 2020-10-13)
PROC: 30233N1 Transfusion of Nonautologous Red Blood Cells into Peripheral Vein, Percutaneous Approach (ICD-10-PCS; principal; 2020-10-14)
DX: I11.0 Hypertensive heart disease with heart failure (principal); I50.31 Acute diastolic (congestive) heart failure; J18.9 Pneumonia, unspecified organism; E11.9 Type 2 diabetes mellitus without complications; J96.20 Acute and chronic respiratory failure, unspecified whether with hypoxia or hypercapnia; D50.0 Iron deficiency anemia secondary to blood loss (chronic); J44.9 Chronic obstructive pulmonary disease, unspecified; Z85.3 Personal history of malignant neoplasm of breast; Z79.899 Other long term (current) drug therapy; Z87.891 Personal history of nicotine dependence; Z88.8 Allergy status to other drugs, medicaments and biological substances; Z86.73 Personal history of transient ischemic attack (TIA), and cerebral infarction without residual deficits; Z79.84 Long term (current) use of oral hypoglycemic drugs
CPT/HCPCS: 36415; 71045; 71275; 80048; 80061; 82550; 82553; 82607; 82728; 82747; 82803; 82947; 82962; 83550; 83615; 83880; 84145; 84484; 85007; 85018; 85025; 85379; 85610; 86140; 86850; 86900; 86901; 86920; 90471; 93005; 93306; 94644; 96361; 96365; 96366; 96367; 96368; 96375; G0378; J0456; J0696; J1650; J1815; J1940; J3475; J7050; P9016; Q9967; U0003